=== PATIENT | female | born 1965 | race African-American/Black ===

== ENCOUNTER 2017-03-05 08:14 | Day surgery (SDC) | payer OTHER ==
[2017-03-04 12:13] VITALS: BMI 31.1
[2017-03-05] MEDS ORDERED: MIDAZOLAM HCL 2 MG/2 ML SINGLE DOSE VIAL ONE ×3 (09:59→10:38)
[2017-03-05] MEDS ORDERED: KETOROLAC TROMETHAMINE 30 MG/1 ML VIAL ONE ×2 (10:08→10:43)
[2017-03-05] MEDS ORDERED: oxyCODONE HCL 5 MG TABLET PO ONE (10:13)
[2017-03-05] MEDS ORDERED: PROPOFOL 20 ML ONE (10:45)
[2017-03-05 10:48] VITALS: TEMP 97.5
[2017-03-05 11:36] VITALS: BP 134/85; PULSE 78
--- NOTE | 2017-03-05 13:55 | OP ---
DATE OF OPERATION: 03/05/2017 PREOPERATIVE DIAGNOSIS: Low-back pain, lumbar radiculopathy bilaterally. POSTOPERATIVE DIAGNOSIS: Low-back pain, lumbar radiculopathy bilaterally. PROCEDURE: Lumbar epidural steroid injection, interlaminar, at L4-L5 on the right side. ANESTHESIA: Local and MAC. ANESTHESIOLOGIST: FREDIS. PROCEDURE: I discussed with her in detail about risks, benefits and alternatives of treatment, not only limited to infection, fever, headache, numbness, tingling, weakness, and injury to nerve, blood vessels, and muscles. Patient understood, agreed, and signed the written consent. The patient was placed in the prone position. Head, abdomen, legs supported with pillows. Patient was given IV sedation. Lumbosacral area was prepped, draped, with Betadine x3 and alcohol x3. Under fluoroscopy, L4-L5 on the right side was identified. Then 3 mL of 1% lidocaine was infiltrated in the skin and subcutaneous tissue at this level. A 20-gauge 3-1/2-inch Tuohy needle was used to expose the epidural space with loss of resistance technique under intermittent fluoroscopy. After negative aspiration of blood and CSF, 3 mL of Omnipaque 180 were injected to see the flow of dye into epidural space, both cranially and caudally. There was no Vascular uptake or CSF spread. Then 2.5 mL of Celestone mixed with 2.5 mL of Marcaine 0.25% preservative-free, total of 5 mL was injected at each level after negative aspiration. While needle was withdrawn, 1 mL of 1% lidocaine was infiltrated. Patient tolerated well. There was no immediate complication. Betadine was wiped off. Sterile bandage was placed. Patient was transferred to recovery room. Patient was told to apply ice. If any problem, call me or report to ER. Follow up was given. ORTIZ ZARCO M.D. [id number] MTDD
== END 2017-03-05 11:15 | disposition home or self-care (01) ==
LOC: FASU 08:14
PROVIDERS: ATTEND Physical Medicine & Rehabilitation
PROC: 3E0R3CZ (ICD-10-PCS; 2017-03-05)
PROC: B01B1ZZ Fluoroscopy of Spinal Cord using Low Osmolar Contrast (ICD-10-PCS; 2017-03-05)
PROC: 3E0R33Z Introduction of Anti-inflammatory into Spinal Canal, Percutaneous Approach (ICD-10-PCS; principal; 2017-03-05 10:06)
DX: M54.16 Radiculopathy, lumbar region (principal); M54.5 Low back pain
CPT/HCPCS: 72100-TC

== ENCOUNTER 2017-04-09 08:52 | Day surgery (SDC) | payer OTHER ==
[2017-04-02 10:16] VITALS: BMI 31.4
[2017-04-09] MEDS ORDERED: MIDAZOLAM HCL 2 MG/2 ML SINGLE DOSE VIAL ONE (11:28)
[2017-04-09] MEDS ORDERED: PROPOFOL 20 ML ONE (11:42)
[2017-04-09 12:26] VITALS: TEMP 98
[2017-04-09 12:39] VITALS: BP 121/81; PULSE 66
--- NOTE | 2017-04-09 13:24 | OP ---
DATE OF OPERATION: 04/09/2017 PERFORMING PHYSICIAN: Ortiz Gr MD PREOPERATIVE DIAGNOSIS: Low back pain with lumbar radiculopathy. POSTOPERATIVE DIAGNOSIS: Low back pain with lumbar radiculopathy. PROCEDURE: Lumbar epidural steroid injection, right L4-L5, interlaminar. ANESTHESIA: Local and MAC. ANESTHESIOLOGIST: Boni Singh MD DESCRIPTION OF PROCEDURE: I discussed with her in detail about risks, benefits, and alternative treatments, not only limited to infection, fever, headache, numbness, tingling, weakness, injury to blood vessels or muscles or nerves. Patient understood, agreed, and signed the written consent. The patient was placed in the prone position with the head, legs, and abdomen supported with pillows. The lumbosacral area was prepped, draped with Betadine x3 and alcohol x3. Under fluoroscopy, the L4-L5 area on the right side was identified. At this level, 3 mL of 1% lidocaine was infiltrated. A 20-gauge 3.5-inch Tuohy needle was used to approach the epidural space with loss of resistance technique, interlaminar approach, with intermittent fluoroscopy, both AP and oblique views. After negative aspiration, 2 mL of Omnipaque 180 was injected to see the flow of dye spread both cranially and caudally. There was spinal uptake, and needle was readjusted. Again, 1 mL of Omnipaque dye was injected after negative aspiration. There was no vascular or CSF uptake. Then, 2.5 mL of betamethasone mixed with 1.5 mL of 0.25% preservative-free Marcaine, total around 4 ML, was injected into the epidural space after negative aspiration. While needle was withdrawn, 1 mL of 1% lidocaine was infiltrated. Bleeding was checked. Betadine was wiped off. A sterile bandage was placed. Patient tolerated the procedure well. There was no immediate complication. Patient was transferred to recovery room, observed and discharged as per criteria. Patient was told to apply ice, and if any problem, call me or report to ER. Patient was given a followup appointment. ORTIZ GR M.D. GUZMAN/[id number]
== END 2017-04-09 12:40 | disposition home or self-care (01) ==
LOC: FASU 08:52
PROVIDERS: ATTEND Physical Medicine & Rehabilitation
PROC: 3E0R3CZ (ICD-10-PCS; 2017-04-09)
PROC: B01B1ZZ Fluoroscopy of Spinal Cord using Low Osmolar Contrast (ICD-10-PCS; 2017-04-09)
PROC: 3E0R33Z Introduction of Anti-inflammatory into Spinal Canal, Percutaneous Approach (ICD-10-PCS; principal; 2017-04-09 11:45)
DX: M54.16 Radiculopathy, lumbar region (principal); M54.5 Low back pain
CPT/HCPCS: 72100-TC

== ENCOUNTER 2017-05-14 11:47 | Day surgery (SDC) | payer OTHER ==
[2017-05-13 16:44] VITALS: BMI 30.6
[2017-05-14 12:21] VITALS: TEMP 98.1
[2017-05-14] MEDS ORDERED: LIDOCAINE HCL 1%, 10 MG/ML (20ML VIAL) IJ ONE (14:16)
[2017-05-14] MEDS ORDERED: BETAMET ACET/BETAMET NA PH 30 MG/5 ML VIAL IM ONE (14:16)
[2017-05-14] MEDS ORDERED: IOHEXOL 180 MG/1 ML ML IJ ONE (14:17)
[2017-05-14] MEDS ORDERED: PROPOFOL 20 ML ONE (14:26)
[2017-05-14] MEDS ORDERED: LIDOCAINE HCL 1%, 10 MG/ML (20ML VIAL) ONE (14:46)
[2017-05-14] MEDS ORDERED: BUPIVACAINE HCL/PF 0.25% (2.5MG/ML) 10 ML VIAL ONE (14:46)
[2017-05-14 15:52] VITALS: BP 137/86; PULSE 87
--- NOTE | 2017-05-28 13:23 | OP ---
DATE OF OPERATION: 05/14/2017 PREOPERATIVE DIAGNOSIS: Low back pain with lumbar radiculopathy on right side. POSTOPERATIVE DIAGNOSIS: Low back pain with lumbar radiculopathy on right side. PROCEDURE: Lumbar epidural steroid injection, right L4-L5 level, interlaminar. ANESTHESIA: Local and MAC. CANCER GENETIC COUNSELOR: Arely Spears CRNA I discussed with her in detail risks, benefits, and alternative treatment not only limited to infection, fever, headache, numbness, tingling, weakness, injury to nerves, blood vessels, and muscles. Patient understood, agreed, and signed the written consent. Patient was placed in the prone position with head, abdomen, legs supported with pillows. Lumbosacral area was prepped and draped with Betadine x3 and alcohol x3. Right L4-L5 level was identified under fluoroscopy. At this level, 3 mL of 1% lidocaine was infiltrated. A 20-gauge, 3-1/2-inch Tuohy needle was used to approach the epidural space with loss of resistance technique. After negative aspiration, approach with loss of resistance technique under intermittent fluoroscopy both AP and oblique view through an interlaminar approach. After negative aspiration, 2 mL of Omnipaque 180 was injected to see the flow of dye into the epidural space both cranially and caudally. There was no venous uptake or CSF spread. A solution containing 2.5 mL of Celestone mixed with 2.5 mL of Marcaine preservative free, total volume mL, injected at this level after negative aspiration. While needle was withdrawn, 1 mL of 1% lidocaine was infiltrated. Patient tolerated the procedure well. There was no immediate complication. Bleeding was checked. Betadine was wiped off. Sterile bandage was placed. Patient was transferred to the recovery room. Patient was discharged as per AC criteria. Patient was told to apply ice. If any problem, call me or report to ER. Patient was given the followup appointment. ORTIZ ZARCO M.D. GUZMAN/[id number]
== END 2017-05-14 15:51 | disposition home or self-care (01) ==
LOC: JASU-SURG 11:47
PROVIDERS: ATTEND Physical Medicine & Rehabilitation
PROC: 3E0R3CZ (ICD-10-PCS; 2017-05-14)
PROC: B01BYZZ Fluoroscopy of Spinal Cord using Other Contrast (ICD-10-PCS; 2017-05-14)
PROC: 3E0R33Z Introduction of Anti-inflammatory into Spinal Canal, Percutaneous Approach (ICD-10-PCS; principal; 2017-05-14 13:00)
DX: M54.16 Radiculopathy, lumbar region (principal); M54.5 Low back pain
CPT/HCPCS: 76000-TC

== ENCOUNTER 2017-08-20 10:00 | Day surgery (SDC) | payer OTHER ==
[2017-08-19 09:57] VITALS: BMI 31.6
[2017-08-20 10:37] VITALS: TEMP 98.4
[2017-08-20] MEDS ORDERED: MIDAZOLAM HCL 2 MG/2 ML SINGLE DOSE VIAL ONE ×2 (13:03→13:10)
[2017-08-20] MEDS ORDERED: LIDOCAINE HCL 1%, 10 MG/ML (20ML VIAL) ONE (13:07)
[2017-08-20] MEDS ORDERED: KETAMINE HCL 200 MG/20 ML VIAL ONE (13:11)
[2017-08-20] MEDS ORDERED: BETAMET ACET/BETAMET NA PH 30 MG/5 ML VIAL IJ ONE (13:26)
[2017-08-20] MEDS ORDERED: LIDOCAINE HCL 1%, 10 MG/ML (20ML VIAL) INF ONE (13:27)
[2017-08-20] MEDS ORDERED: IOHEXOL 180 MG/1 ML ML IJ ONE (13:27)
[2017-08-20] MEDS ORDERED: BUPIVACAINE HCL/PF 0.25% (2.5MG/ML) 10 ML VIAL IJ ONE (13:28)
[2017-08-20] MEDS ORDERED: oxyCODONE HCL 5 MG TABLET ONE (13:50)
[2017-08-20] MEDS ORDERED: oxyCODONE HCL 5 MG TABLET PO ONE (15:15)
[2017-08-20 15:46] VITALS: BP 133/80; PULSE 72
--- NOTE | 2017-09-13 13:02 | PROC ---
Procedure Note Procedure: Preoperative Diagnosis:Low back pain and lumbar radiculopathy on Left Postoperative Diagnosis:Same Procedure Performed: Lumbar Epidural Steroid Injection (LESI) on Left L4-5 with dye under Fluoroscopy Anesthesia: Local / MAC Anesthesiologist: Procedure: I discussed with the patient in detail about the risks, benefits, and alternatives to treatment not only limited to infection, headache, numbness , weakness, and injury to nerves, blood vessels and muscles. The patient understood, agreed and signed the written consent. The patient was placed in the prone position with the head, abdomen and legs supported with the pillows. The lumbosacral area was prepped and draped with Betadine times three in a sterile fashion. Lumbar vertebrae were identified under the C-arm. At L4-5 level on the Left side, 3 ml of 1 % Lidocaine was infiltrated into the skin and subcutaneous tissue. A 3 inch, #20 gauge Tuohy needle was advanced to the epidural space with loss of resistance technique under fluoroscopic guidance. Aspiration was negative for cerebrospinal fluid and blood. 2ml of Omnipaque ( radio-opaque dye) was injected to confirm the tip of the needle into epidural space and spread of dye. There was no CSF or vascular spread. The spread of dye was noted cranially and caudally on epidurogram. Aspiration was done again which was negative. A solution of 2.5 ml of Celestone and 2.5 ml of 0.25% Marcaine and and a total of 5 ml was injected slowly. While Tuohy needle was withdrawn 2.0 ml of 1 % Lidocaine was infiltrated. Bleeding was checked. Betadine was wiped off. A sterile bandage was placed. The patient tolerated the procedure well. There were no immediate complications. The patient was transferred to the recovery room. The patient was observed for some time and discharged as per ASU criteria. The patient was told to apply ice at the injection site. Follow up appointment was given and also call my office at . If there is any problem, call my office or report to Emergency Room. Vish Gr M.D.
== END 2017-08-20 15:10 | disposition home or self-care (01) ==
LOC: JASU-SURG 10:00
PROVIDERS: ATTEND Physical Medicine & Rehabilitation
PROC: 3E0S33Z Introduction of Anti-inflammatory into Epidural Space, Percutaneous Approach (ICD-10-PCS; 2017-08-20)
PROC: B01BYZZ Fluoroscopy of Spinal Cord using Other Contrast (ICD-10-PCS; 2017-08-20)
PROC: 3E0S3BZ Introduction of Anesthetic Agent into Epidural Space, Percutaneous Approach (ICD-10-PCS; principal; 2017-08-20 12:00)
DX: M54.16 Radiculopathy, lumbar region (principal); M54.9 Dorsalgia, unspecified
CPT/HCPCS: 76000-TC

== ENCOUNTER 2017-12-01 03:02 | Emergency (ER) | payer OTHER ==
--- NOTE | 2017-12-01 03:56 | PDOC ---
History of Present Illness - General Stated Complaint: DEPRESSION Time Seen by Provider: 12/01/17 03:30 - History of Present Illness Initial Comments: 12/01/17 03:50 Pt is a 52F with PMH Manic Depression, ADHD, herniated disc, HTN who presents to the ED stating that she is "not feeling well". Pt states that she was arguing with her son and was feeling like she shouldn't be with her family today and needs placement. She states she was taking Pristiq but stopped the medication on her own 6 weeks ago. When asked if she felt like she wants to hurt herself, pt repeated "I just don't feel well" before finally stating that she did not have any intention of hurting herself. Pt denies smoking, drinking, drug use. Past History - Past Medical History Allergies/Adverse Reactions: Allergies Allergy/AdvReac Type Severity Reaction Status Date / Time naproxen Allergy Rash Verified 12/01/17 04:25 Home Medications: Ambulatory Orders Metoprolol Succinate [Toprol Xl] 50 mg PO DAILY 05/19/16 Atomoxetine HCl [Strattera] 80 mg PO DAILY 08/20/16 Desvenlafaxine Succinate [Pristiq] 50 mg PO DAILY 05/14/17 Hydrocodone/Acetaminophen [Lorcet 5-325 mg Tablet] 1 tab PO PRN PRN 08/19/17 Anemia: No Asthma: No Cancer: No Cardiac Disorders: No (HAD RIGHT SIDED PAIN SEVERAL MONTHS AGO- SEEN BY CARIOLOGIST- NEGATIVE) CVA: No COPD: No CHF: No Dementia: No Diabetes: No GI Disorders: No Disorders: No HTN: Yes (DX 2011) Hypercholesterolemia: No Liver Disease: No Psychiatric Problems: Yes (depression,adhd) Seizures: No Thyroid Disease: No - Surgical History Abdominal Surgery: No Appendectomy: No Cardiac Surgery: No Cholecystectomy: No Lung Surgery: No Neurologic Surgery: No Orthopedic Surgery: Yes ([place] X 1 2015) - Immunization History Immunization Up to Date: No - Suicide/Smoking/Psychosocial Hx Smoking History: Former smoker Have you smoked in the past 12 months: No If you are a former smoker, when did you quit?: 1970 Hx Alcohol Use: No Drug/Substance Use Hx: No Substance Use Type: Prescribed Hx Substance Use Treatment: No Review of Systems - Review of Systems Able to Perform ROS?: Yes Is the patient limited Malian proficient: No Constitutional: Yes: Symptoms Reported. No: Chills, Diaphoresis, Fever HEENTM: Yes: Symptoms Reported. No: Eye Pain, Blurred Vision Respiratory: Yes: Symptoms reported. No: Cough Cardiac (ROS): Yes: Symptoms Reported. No: Chest Pain ABD/GI: Yes: Symptoms Reported. No: Abdominal Distended, Constipated, Diarrhea : Yes: Symptoms Reported. No: Burning, Dysuria, Discharge Musculoskeletal: Yes: Symptoms Reported. No: Back Pain Psychiatric: Yes: Depression, Emotional Problems *Physical Exam - Physical Exam General Appearance: Yes: Nourished, Appropriately Dressed, Other (pt appears subdued, speaks quietly) HEENT: positive: EOMI, LUIS, Normal ENT Inspection, Normal Voice Neck: positive: Supple. negative: Tender Respiratory/Chest: positive: Lungs Clear, Normal Breath Sounds. negative: Chest Tender Cardiovascular: positive: Regular Rhythm, Regular Rate, S1, S2 Vascular Pulses: Dorsalis-Pedis (R): 2+, Doralis-Pedis (L): 2+ Gastrointestinal/Abdominal: positive: Normal Bowel Sounds, Flat, Soft. negative : Tender Neurologic: positive: Fully Oriented, Normal Mood/Affect, Depressed Affect ED Treatment Course - LABORATORY CBC & Chemistry Diagram: 12/01/17 06:00 12/01/17 06:00 Medical Decision Making - Medical Decision Making 12/01/17 04:01 Pt is a 52 y/o F w/ PMH manic depression (on pristiq until 6 weeks ago), ADHD who presents to ED with chief complaint of not feeling well. Pt states she had argument with son and feels she should not be with family. Likely depression -CBC, CMP -Pt clearly denied intention of self-harm Pt sees Dr. Quintero as outpt. 12/01/17 06:41 CBC unremarkable. 12/01/17 06:52 Pt will need social work, which should become available after 8am. *DC/Admit/Observation/Transfer - Referrals Referrals: STAFF,NOT ON [Primary Care Provider] - - Patient Instructions - Post Discharge Activity
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
[2017-12-01 04:25] VITALS: TEMP 98.2; BMI 29.9
[2017-12-01] MEDS ORDERED: ACETAMINOPHEN 325 MG TABLET (FP) PO ONE (04:46)
[2017-12-01] MEDS ORDERED: ACETAMINOPHEN 325 MG TABLET (FP) ONE (04:53)
[2017-12-01 06:15] LABS: BASO % 0.7 % (0-2.0); EOS % 2.9 % (0-4.5); HEMATOCRIT 35.9 % (32.4-45.2); LYMPH % 29.8 % (8-40); MCH 32.2 pg (25.7-33.7); MCHC 33.5 g/dl (32.0-36.0); MEAN CELL VOLUME 96.1 fl (80-96); MEAN PLT VOLUME 8.2 fl (7.5-11.1); MONO % 7.6 % (3.8-10.2); PLATELET COUNT 249 K/MM3 (134-434); RBC 3.74 M/mm3 (3.60-5.2); WHITE BLOOD COUNT 6.4 K/mm3 (4.0-10.0)
[2017-12-01 06:43] LABS: ALBUMIN 3.4 g/dl (3.4-5.0); ANION GAP 7 (8-16); BILIRUBIN,TOTAL 0.2 mg/dL (0.2-1.0); BLOOD UREA NITROGEN 20 mg/dL (7-18); CHLORIDE 108 mmol/L (98-107); CO2 28 mmol/L (21-32); CREATININE 0.8 mg/dL (0.55-1.02); GLUCOSE,RANDOM 83 mg/dL (74-106); POTASSIUM 3.9 mmol/L (3.5-5.1); SGOT/AST 19 U/L (15-37); SGPT/ALT 26 U/L (12-78); SODIUM 143 mmol/L (136-145); TOT PROT 6.4 g/dl (6.4-8.2)
[2017-12-01 06:44] LABS: ALK PHOS 81 U/L (45-117)
--- NOTE | 2017-12-01 07:24 | PDOC ---
*Physical Exam - Vital Signs Last Vital Signs Temp Pulse Resp BP Pulse Ox 98.2 F 71 16 131/90 100 12/01/17 04:20 12/01/17 04:20 12/01/17 04:20 12/01/17 04:20 12/01/17 04:20 ED Treatment Course - LABORATORY CBC & Chemistry Diagram: 12/01/17 06:00 12/01/17 06:00 - ADDITIONAL ORDERS Additional order review: Laboratory Results 12/01/17 06:00 Sodium 143 Potassium 3.9 Chloride 108 H Carbon Dioxide 28 Anion Gap 7 L BUN 20 H Creatinine 0.8 Creat Clearance w eGFR > 60 Random Glucose 83 Calcium 10.0 Total Bilirubin 0.2 AST 19 ALT 26 Alkaline Phosphatase 81 Total Protein 6.4 Albumin 3.4 12/01/17 06:00 RBC 3.74 MCV 96.1 H MCHC 33.5 RDW 14.0 MPV 8.2 Neutrophils % 59.0 Lymphocytes % 29.8 Monocytes % 7.6 Eosinophils % 2.9 Basophils % 0.7 - Medications Given in the ED: ED Medications Discontinued Medications Generic Name Dose Route Start Last Admin Trade Name Lion PRN Reason Stop Dose Admin Acetaminophen 325 mg 12/01/17 04:46 12/01/17 04:55 Tylenol - PO 12/01/17 04:47 325 mg ONCE ONE Administration Medical Decision Making - Medical Decision Making 12/01/17 07:24 Care taken over from Dr. Cueto. 12/01/17 08:49 Social work consulted and will see patient. 12/01/17 11:22 Patient work spoke with patient and provided information regarding placement and resources for care. Patient verbalized she will return home and follow-up tomorrow. Patient would like to go home and is feeling better. Will discharge. *DC/Admit/Observation/Transfer Diagnosis at time of Disposition: Malaise - Discharge Dispostion Disposition: HOME - Referrals Referrals: STAFF,NOT ON [Primary Care Provider] - - Patient Instructions Printed Discharge Instructions: DI for Depression -- Adult Additional Instructions: Please return if any increase in symptoms, pain, fever, or other concerning developments. Follow-up with primary care provider in 1-2 days for further evaluation. - Post Discharge Activity
[2017-12-01 11:38] VITALS: BP 134/98; PULSE 89
== END 2017-12-01 11:38 | disposition home or self-care (01) ==
LOC: JER 03:02
DX: F32.9 Major depressive disorder, single episode, unspecified (principal); F90.9 Attention-deficit hyperactivity disorder, unspecified type; I10 Essential (primary) hypertension
CPT/HCPCS: 36415; 80053; 85025; 99282-25

== ENCOUNTER 2017-12-17 08:12 | Day surgery (SDC) | payer OTHER ==
[2017-12-16 11:07] VITALS: BMI 32.4
[2017-12-17 08:29] VITALS: TEMP 98.2
[2017-12-17] MEDS ORDERED: PROPOFOL 20 ML ONE ×2 (10:17→10:49)
[2017-12-17] MEDS ORDERED: MIDAZOLAM HCL 2 MG/2 ML SINGLE DOSE VIAL ONE (10:17)
[2017-12-17] MEDS ORDERED: BUPIVACAINE HCL/PF 0.25% (2.5MG/ML) 10 ML VIAL ONE (10:25)
[2017-12-17] MEDS ORDERED: LIDOCAINE HCL 1%, 10 MG/ML (20ML VIAL) ONE (10:25)
[2017-12-17] MEDS ORDERED: BETAMET ACET/BETAMET NA PH 30 MG/5 ML VIAL ONE (10:25)
[2017-12-17] MEDS ORDERED: LIDOCAINE HCL 1%, 10 MG/ML (20ML VIAL) INF ONE (10:45)
[2017-12-17] MEDS ORDERED: IOHEXOL 180 MG/1 ML ML IJ ONE ×2 (10:46)
[2017-12-17] MEDS ORDERED: BUPIVACAINE HCL/PF 0.5% (5MG/ML) 10 ML VIAL IJ ONE (10:46)
[2017-12-17] MEDS ORDERED: BUPIVACAINE HCL/PF 0.5% (5MG/ML) 10 ML VIAL ONE (11:03)
[2017-12-17 12:16] VITALS: BP 128/82; PULSE 77
== END 2017-12-17 12:41 | disposition home or self-care (01) ==
LOC: JASU-SURG 08:12
PROVIDERS: ATTEND Physical Medicine & Rehabilitation
PROC: 3E0T3BZ Introduction of Anesthetic Agent into Peripheral Nerves and Plexi, Percutaneous Approach (ICD-10-PCS; principal; 2017-12-17 08:00)
DX: M46.96 Unspecified inflammatory spondylopathy, lumbar region (principal); M54.89 Other dorsalgia
CPT/HCPCS: 76000-TC

== ENCOUNTER 2018-01-31 17:33 | Emergency (ER) | payer OTHER ==
--- NOTE | 2018-01-31 17:59 | PDOC ---
Rapid Medical Evaluation Time Seen by Provider: 01/31/18 17:57 Medical Evaluation: Allergies Allergy/AdvReac Type Severity Reaction Status Date / Time naproxen Allergy Rash Verified 12/01/17 04:25 01/31/18 17:57 I have performed a brief in-person evaluation of this patient. The patient presents with a chief complaint of: post menopausal bleeding w/ nausea today. Pt menopausal x years, HTN, manic depression but off psych meds for unclear reason Pertinent physical exam findings:Stable w/ unremarkable exam I have ordered the following:cbc/chem The patient will proceed to the ED for further evaluation.
[2018-01-31 18:02] VITALS: BP 120/74; PULSE 70; TEMP 98.1; BMI 31.2
[2018-01-31 18:19] LABS: BASO % 0.6 % (0-2.0); HEMATOCRIT 37.6 % (32.4-45.2); HEMOGLOBIN 12.5 GM/dL (10.7-15.3); LYMPH % 30.5 % (8-40); MCH 32.2 pg (25.7-33.7); MCHC 33.3 g/dl (32.0-36.0); MEAN CELL VOLUME 96.6 fl (80-96); MEAN PLT VOLUME 9.2 fl (7.5-11.1); MONO % 9.6 % (3.8-10.2); NEUT % 57.3 % (42.8-82.8); PLATELET COUNT 321 K/MM3 (134-434); RBC 3.89 M/mm3 (3.60-5.2); RDW 13.9 % (11.6-15.6); WHITE BLOOD COUNT 6.4 K/mm3 (4.0-10.0)
[2018-01-31 18:44] LABS: ALBUMIN 3.6 g/dl (3.4-5.0); ALK PHOS 85 U/L (45-117); ANION GAP 8 (8-16); BILIRUBIN,TOTAL 0.3 mg/dL (0.2-1.0); BLOOD UREA NITROGEN 14 mg/dL (7-18); CALCIUM 10.4 mg/dL (8.5-10.1); CHLORIDE 109 mmol/L (98-107); CO2 28 mmol/L (21-32); GLUCOSE,RANDOM 86 mg/dL (74-106); SGOT/AST 16 U/L (15-37); SGPT/ALT 21 U/L (12-78); SODIUM 145 mmol/L (136-145); TOT PROT 7.2 g/dl (6.4-8.2)
--- NOTE | 2018-01-31 18:47 | PDOC ---
History of Present Illness - General Chief Complaint: Weakness Stated Complaint: WEAKNESS Time Seen by Provider: 01/31/18 17:57 History Source: Patient Exam Limitations: No Limitations - History of Present Illness Initial Comments: CHIEF COMPLAINT: 52 y/o afebrile female with PMH HTN, ADHD and depression c/o nausea and bleeding (unsure if from urine or vaginal) today. HISTORY OF PRESENT ILLNESS: The patient states she has been urinating more frequently today and when she wipes she has some blood on the toilet paper. She is unsure if the blood is vaginal or from her urinary tract. She denies f/c , v/d, CP, SOB, back pain, dysuria. Vital signs on arrival are within normal limits. REVIEW OF SYSTEMS: GENERAL/CONSTITUTIONAL: No fever/chills. No weakness. No weight change. HEAD, EYES, EARS, NOSE AND THROAT: No change in vision. No ear pain or discharge. No sore throat. CARDIOVASCULAR: No chest pain or shortness of breath. RESPIRATORY: No cough, wheezing, or hemoptysis. GASTROINTESTINAL: +nausea. No vomiting, diarrhea, constipation. GENITOURINARY: ?hematuria vs vaginal spotting. +frequency. No dysuria. MUSCULOSKELETAL: No joint or muscle swelling or pain. No neck or back pain. SKIN: No rash or easy bruising. NEUROLOGIC: No headache, vertigo, loss of consciousness, or loss of sensation. PHYSICAL EXAM: GENERAL: The patient is awake, alert, and fully oriented, in no acute distress. She is well appearing and ambulatory. ABDOMEN: Soft, non-distended, TTP of suprapubic region. No flank pain. BACK: No CVA TTP b/l. EXTREMITIES: Normal range of motion, no edema. NEUROLOGICAL: Normal speech, normal gait. CN II-XII grossly intact. PSYCH: Somewhat flat affect. SKIN: Warm, dry, normal turgor, no rashes or lesions noted. Past History - Past Medical History Allergies/Adverse Reactions: Allergies Allergy/AdvReac Type Severity Reaction Status Date / Time naproxen Allergy Rash Verified 01/31/18 17:58 Home Medications: Ambulatory Orders Metoprolol Succinate [Toprol Xl] 50 mg PO DAILY 05/19/16 Atomoxetine HCl [Strattera] 80 mg PO DAILY 08/20/16 Hydrocodone Bitartrate [Zohydro ER] 5 mg PO PRN 01/31/18 Anemia: No Asthma: No Cancer: No Cardiac Disorders: No (HAD RIGHT SIDED PAIN SEVERAL MONTHS AGO- SEEN BY CARIOLOGIST- NEGATIVE) CVA: No COPD: No CHF: No Dementia: No Diabetes: No GI Disorders: No Disorders: No HTN: Yes (DX 2011) Hypercholesterolemia: No Liver Disease: No Psychiatric Problems: Yes (depression,adhd) Seizures: No Thyroid Disease: No - Surgical History Abdominal Surgery: No Appendectomy: No Cardiac Surgery: No Cholecystectomy: No Lung Surgery: No Neurologic Surgery: No Orthopedic Surgery: Yes ([place] X 1 2015) - Immunization History Immunization Up to Date: No - Suicide/Smoking/Psychosocial Hx Smoking History: Former smoker Have you smoked in the past 12 months: No If you are a former smoker, when did you quit?: 1969 Information on smoking cessation initiated: No Hx Alcohol Use: No Drug/Substance Use Hx: No Substance Use Type: Prescribed Hx Substance Use Treatment: No *Physical Exam - Vital Signs Last Vital Signs Temp Pulse Resp BP Pulse Ox 98.1 F 70 16 120/74 99 01/31/18 17:58 01/31/18 17:58 01/31/18 17:58 01/31/18 17:58 01/31/18 17:58 ED Treatment Course - LABORATORY CBC & Chemistry Diagram: 01/31/18 18:10 01/31/18 18:10 - ADDITIONAL ORDERS Additional order review: 01/31/18 18:10 RBC 3.89 MCV 96.6 H MCHC 33.3 RDW 13.9 MPV 9.2 D Neutrophils % 57.3 Lymphocytes % 30.5 Monocytes % 9.6 Eosinophils % 2.0 Basophils % 0.6 Medical Decision Making - Medical Decision Making A/P: 52 y/o female c/o nausea, increased urinary frequency and vaginal vs urinary bleeding today. Physical exam suggests UTI. Plan is as follows: 1. Labs 2. UA/culture Labs unremarkable Waiting for patient to give urine. She was given a pitcher of water. I am signing this patient out to my colleague: CLARISSE Linda In brief, this patient is being seen in the ED for a chief complaint of: nausea , vaginal vs urinary bleeding I have completed the initial assessment interview note and have ordered: labs, UA/culture I have reviewed the following results: labs Pending results are: UA Please call the PCP: Bruce Davis Plan for disposition is as follows: If urine is negative for blood, send for transvaginal ultrasound? *DC/Admit/Observation/Transfer Diagnosis at time of Disposition: Endometrial thickening on ultrasound, Vaginal bleeding, Prolapsed uterus - Discharge Dispostion Disposition: HOME Condition at time of disposition: Stable - Referrals Referrals: Bruce Davis MD [Primary Care Provider] - - Patient Instructions Printed Discharge Instructions: DI for Vaginal Bleeding Additional Instructions: You Your ultrasound today showed a mildly thickened endometrium. It is important that you follow-up with her FUR BLENDER for further testing as this may represent cancer. Please drink plenty of fluids. He may take Motrin as needed for pain. Return to the emergency department if you have worsening pain, vaginal bleeding , shortness of breath, or have any changes in your symptoms. - Post Discharge Activity Forms/Work/School Notes: Back to Work
--- NOTE | 2018-01-31 19:19 | PDOC ---
*Physical Exam - Vital Signs Last Vital Signs Temp Pulse Resp BP Pulse Ox 98.1 F 70 16 120/74 99 01/31/18 17:58 01/31/18 17:58 01/31/18 17:58 01/31/18 17:58 01/31/18 17:58 - Physical Exam General Appearance: Yes: Nourished, Appropriately Dressed. No: Apparent Distress Female Pelvic Exam: positive: cervical os closed, other (Uterine prolapse with os at the base of the vaginal opening.) ED Treatment Course - LABORATORY CBC & Chemistry Diagram: 01/31/18 18:10 01/31/18 18:10 - ADDITIONAL ORDERS Additional order review: Laboratory Results 01/31/18 18:10 Sodium 145 Potassium 4.0 Chloride 109 H Carbon Dioxide 28 Anion Gap 8 BUN 14 Creatinine 1.0 Creat Clearance w eGFR 58.00 Random Glucose 86 Calcium 10.4 H Total Bilirubin 0.3 D AST 16 ALT 21 Alkaline Phosphatase 85 Total Protein 7.2 Albumin 3.6 01/31/18 18:10 RBC 3.89 MCV 96.6 H MCHC 33.3 RDW 13.9 MPV 9.2 D Neutrophils % 57.3 Lymphocytes % 30.5 Monocytes % 9.6 Eosinophils % 2.0 Basophils % 0.6 Medical Decision Making - Medical Decision Making 01/31/18 19:18 Sign out recieved from CLARISSE Howard. Pt. pending UA d/t possible hematuria vs vaginal bleeding. Pt. still to give urine. 01/31/18 23:14 Urine is negative for blood, no uti. Labs within normal limits. Transvaginal US:Leiomyomatous uterus as above. Borderline mildly thickened endometrium for postmenopausal state measuring 6 mm please correlate clinically with endometrial sampling if warranted. Right left ovaries are not visualized and cannot be evaluated. Bleeding most likely vaginal source. No bleeding at this time. Will recommend pt f/u with her internal affairs commander as an out patient. Patient given a copy of her results. Pt. also advised she has a prolapsed uterus and that f/u with her internal affairs commander is very important. Return precautions given. Pt. understands all d/c instructions and all questions were answered. *DC/Admit/Observation/Transfer Diagnosis at time of Disposition: Endometrial thickening on ultrasound, Vaginal bleeding, Prolapsed uterus - Discharge Dispostion Disposition: HOME Condition at time of disposition: Stable Admit: No - Referrals Referrals: Bruce Davis MD [Primary Care Provider] - - Patient Instructions Printed Discharge Instructions: DI for Vaginal Bleeding Additional Instructions: You Your ultrasound today showed a mildly thickened endometrium. It is important that you follow-up with her TECHNOLOGY TRAINING ASSOCIATE for further testing as this may represent cancer. Please drink plenty of fluids. He may take Motrin as needed for pain. Return to the emergency department if you have worsening pain, vaginal bleeding , shortness of breath, or have any changes in your symptoms. - Post Discharge Activity Forms/Work/School Notes: Back to Work
[2018-01-31 20:21] LABS: URINE APPEARANCE CLEAR; URINE BILIRUBIN NEGATIVE (NEGATIVE); URINE BLOOD NEGATIVE (NEGATIVE); URINE COLOR LTYELLOW; URINE GLUCOSE (UA) NEGATIVE (NEGATIVE); URINE KETONE NEGATIVE (NEGATIVE); URINE LEUK ESTERASE NEGATIVE (NEGATIVE); URINE NITRITE NEGATIVE (NEGATIVE); URINE PROTEIN NEGATIVE (NEGATIVE); URINE UROBILINOGEN NEGATIVE mg/dL (0.2-1.0)
== END 2018-01-31 23:52 | disposition home or self-care (01) ==
LOC: JER 17:33
DX: R93.8 Abnormal findings on diagnostic imaging of other specified body structures (principal); N81.4 Uterovaginal prolapse, unspecified; D25.9 Leiomyoma of uterus, unspecified; I10 Essential (primary) hypertension; F90.9 Attention-deficit hyperactivity disorder, unspecified type; F32.9 Major depressive disorder, single episode, unspecified
CPT/HCPCS: 36415; 76830-TC; 80053; 81003; 85025; 87086; 99282-25

== ENCOUNTER 2018-03-25 07:16 | Day surgery (SDC) | payer OTHER ==
[2018-02-24 14:24] VITALS: BMI 32.4
[~2018-03-25 07:16] MED LIST: BETAMET ACET/BETAMET NA PH 30 MG/5 ML VIAL IJ ONE; BUPIVACAINE HCL/PF 0.25% (2.5MG/ML) 10 ML VIAL IJ ONE; IOHEXOL 180 MG/1 ML ML IJ ONE; LIDOCAINE HCL 1%, 10 MG/ML (20ML VIAL) INF ONE; LIDOCAINE HCL 1%, 10 MG/ML (50 mL VIAL) IJ ONE
[2018-03-25] MEDS ORDERED: LIDOCAINE HCL 1%, 10 MG/ML (20ML VIAL) ONE (09:06)
[2018-03-25] MEDS ORDERED: BETAMET ACET/BETAMET NA PH 30 MG/5 ML VIAL ONE (09:06)
[2018-03-25] MEDS ORDERED: BUPIVACAINE HCL/PF 0.25% (2.5MG/ML) 10 ML VIAL ONE (09:07)
[2018-03-25] MEDS ORDERED: LIDOCAINE HCL 1%, 10 MG/ML (20ML VIAL) INF ONE (09:27)
[2018-03-25] MEDS ORDERED: IOHEXOL 180 MG/1 ML ML IJ ONE (09:28)
[2018-03-25] MEDS ORDERED: BETAMET ACET/BETAMET NA PH 30 MG/5 ML VIAL IJ ONE (09:30)
[2018-03-25] MEDS ORDERED: BUPIVACAINE HCL/PF 0.25% (2.5MG/ML) 10 ML VIAL IJ ONE ×2 (09:30)
[2018-03-25 10:02] VITALS: TEMP 98.1
[2018-03-25 11:29] VITALS: BP 126/89; PULSE 80
--- NOTE | 2018-04-07 10:26 | PROC ---
Procedure Note Procedure: Date of service: 03/25/2018 Preoperative Diagnosis: Low back pain and lumbar radiculopathy on right Postoperative Diagnosis: Same Procedure Performed: Lumbar Epidural Steroid Injection (LESI) on Right L4-5 with dye under Fluoroscopy Anesthesia: Local / MAC Anesthesiologist: Procedure: I discussed with the patient in detail about the risks, benefits, and alternatives to treatment not only limited to infection, headache, numbness , weakness, and injury to nerves, blood vessels and muscles. The patient understood, agreed and signed the written consent. The patient was placed in the prone position with the head, abdomen and legs supported with the pillows. The lumbosacral area was prepped and draped with Betadine times three in a sterile fashion. Lumbar vertebrae were identified under the C-arm. At L4-5 level on the right side, 3 ml of 1 % Lidocaine was infiltrated into the skin and subcutaneous tissue. A 3 inch, #20 gauge Tuohy needle was advanced to the epidural space with loss of resistance technique under fluoroscopic guidance. Aspiration was negative for cerebrospinal fluid and blood. 2ml of Omnipaque ( radio-opaque dye) was injected to confirm the tip of the needle into epidural space and spread of dye. There was no CSF or vascular spread. The spread of dye was noted cranially and caudally on epidurogram. Aspiration was done again which was negative. A solution of 2.5 ml of Celestone, 2.5 ml of 0.25% Marcaine a total of 5 ml was injected slowly. While Tuohy needle was withdrawn 2.0 ml of 1 % Lidocaine was infiltrated. Bleeding was checked. Betadine was wiped off. A sterile bandage was placed. The patient tolerated the procedure well. There were no immediate complications. The patient was transferred to the recovery room. The patient was observed for some time and discharged as per ASU criteria. The patient was told to apply ice at the injection site. Follow up appointment was given and also call my office at [phone]. If there is any problem, call my office or report to Emergency Room. Vish Gr M.D.
== END 2018-03-25 11:35 | disposition home or self-care (01) ==
LOC: JASU-SURG 07:16
PROVIDERS: ATTEND Physical Medicine & Rehabilitation
PROC: 3E0R33Z Introduction of Anti-inflammatory into Spinal Canal, Percutaneous Approach (ICD-10-PCS; 2018-03-25)
PROC: B01BYZZ Fluoroscopy of Spinal Cord using Other Contrast (ICD-10-PCS; 2018-03-25)
PROC: 3E0R3BZ Introduction of Anesthetic Agent into Spinal Canal, Percutaneous Approach (ICD-10-PCS; principal; 2018-03-25 08:30)
DX: M54.16 Radiculopathy, lumbar region (principal); M54.5 Low back pain
CPT/HCPCS: 76000-TC-FY

== ENCOUNTER 2018-06-23 19:57 | Emergency (ER) | payer OTHER ==
[2018-06-23 20:30] VITALS: BP 123/84; PULSE 67; TEMP 98.4; BMI 33.3
[2018-06-23] MEDS ORDERED: ACETAMINOPHEN 325 MG TABLET (FP) PO ONE (20:40)
[2018-06-23] MEDS ORDERED: KETOROLAC TROMETHAMINE 60 MG/2 ML VIAL IM ONE (20:40)
--- NOTE | 2018-06-23 21:09 | PDOC ---
Attending Attestation - HPI HPI: 06/23/18 22:02 The patient is a 53 year old female with past medical history of herniated disc , chronic back pain and HTN presents to the emergency department with pain. The patient presents with a week long worsening R. hip pain that radiates down to her foot, with difficulty ambulating. Denies urinary problems. Denies saddle anesthesia. Denies trauma or injury. Denies prior incident of similar pain. Allergies: naproxen Surgical history: ENRICO X 1 2016 PCP: Bruce Davis MD - Physicial Exam PE: 06/24/18 00:33 GENERAL: Well developed, well nourished. Awake and alert. No acute distress. HEENT: Normocephalic, atraumatic. PERRLA, EOMI. No conjunctival pallor. Sclera are non- icteric. Moist mucous membranes. Oropharynx is clear. NECK: Supple. Full ROM. No JVD. Carotid pulses 2+ and symmetric, without bruits. No thyromegaly. No lymphadenopathy. CARDIOVASCULAR: Regular rate and rhythm. No murmurs, rubs, or gallops. Distal pulses are 2+ and symmetric. PULMONARY: No evidence of respiratory distress. Lungs clear to auscultation bilaterally. No wheezing, rales or rhonchi. ABDOMINAL: Soft. Non-tender. Non-distended. No rebound or guarding. No organomegaly. Normoactive bowel sounds. MUSCULOSKELETAL Normal range of motion at all joints. No bony deformities or tenderness. No CVA tenderness. EXTREMITIES: No cyanosis. No clubbing. No edema. No calf tenderness. SKIN: Warm and dry. Normal capillary refill. No rashes. No jaundice. NEUROLOGICAL: Alert, awake, appropriate. Cranial nerves 2-12 intact. No deficits to light touch and temperature in face, upper extremities and lower extremities. No motor deficits in the in face, upper extremities and lower extremities. Normoreflexic in the upper and lower extremities. Normal speech. Toes are down- going bilaterally. Gait is normal without ataxia. PSYCHIATRIC: Cooperative. Good eye contact. Appropriate mood and affect. - Medical Decision Making 06/23/18 22:02 Documentation prepared by Rebekah Herrmann, acting as manager of medical for Manuel Bruce MD. <Rebekah Herrmann - Last Filed: 06/24/18 00:33> - Resident Resident Name: Ferny Waddell - ED Attending Attestation I have performed the following: I have examined & evaluated the patient, The case was reviewed & discussed with the resident, I agree w/resident's findings & plan, Exceptions are as noted - Medical Decision Making 06/24/18 19:43 Pt treated and released <Manuel Bruce - Last Filed: 06/24/18 19:44>
[2018-06-23] MEDS ORDERED: DEXAMETHASONE 4 MG TABLET (FP) PO ONE (21:10)
--- NOTE | 2018-06-23 21:10 | PDOC ---
History of Present Illness - General Chief Complaint: Pain Stated Complaint: R HIP PAIN Time Seen by Provider: 06/23/18 20:29 History Source: Patient Exam Limitations: No Limitations - History of Present Illness Initial Comments: 06/23/18 20:44 Patient is a 53F with history of chronic back pain, herniated discs and HTN here today complaining of 1 week of hip pain. She states that her pain is a stabbing feeling from her posterior right lower back down the back of her leg to her foot. She denies trauma, fevers, chills, IVDA, saddle anesthesia, issues with urination. Denies chest pain, shortness of breath. Denies abdominal pain. Past History - Past Medical History Allergies/Adverse Reactions: Allergies Allergy/AdvReac Type Severity Reaction Status Date / Time naproxen Allergy Rash Verified 06/23/18 20:30 Home Medications: Ambulatory Orders Metoprolol Succinate [Toprol Xl] 50 mg PO DAILY 05/19/16 Atomoxetine HCl [Strattera] 80 mg PO DAILY 08/20/16 Gabapentin 800 mg PO PRN PRN 03/24/18 Hydrocodone/Acetaminophen [Hydrocodone-Acetamin 5-325 mg] 1 each PO PRN PRN Anemia: No Asthma: No Cancer: No Cardiac Disorders: No (HAD RIGHT SIDED PAIN SEVERAL MONTHS AGO- SEEN BY CARIOLOGIST- NEGATIVE) CVA: No COPD: No CHF: No Dementia: No Diabetes: No GI Disorders: No Disorders: No HTN: Yes (DX 2011) Hypercholesterolemia: No Liver Disease: No Psychiatric Problems: Yes (depression,adhd) Seizures: No Thyroid Disease: No - Surgical History Abdominal Surgery: No Appendectomy: No Cardiac Surgery: No Cholecystectomy: No Lung Surgery: No Neurologic Surgery: No Orthopedic Surgery: Yes (ENRICO X 1 2016) - Immunization History Immunization Up to Date: No - Suicide/Smoking/Psychosocial Hx Smoking History: Never smoked Have you smoked in the past 12 months: No If you are a former smoker, when did you quit?: 1969 Information on smoking cessation initiated: No Hx Alcohol Use: No Drug/Substance Use Hx: No Substance Use Type: None Hx Substance Use Treatment: No Review of Systems - Review of Systems Comments:: 06/23/18 21:29 GENERAL/CONSTITUTIONAL: No fever or chills. No weakness. HEAD, EYES, EARS, NOSE AND THROAT: No change in vision. No ear pain or discharge. No sore throat. CARDIOVASCULAR: No chest pain or shortness of breath RESPIRATORY: No cough, wheezing, or hemoptysis. GASTROINTESTINAL: No nausea, vomiting, diarrhea or constipation. GENITOURINARY: No dysuria, frequency, or change in urination. MUSCULOSKELETAL: +l hip and lower back pain SKIN: No rash NEUROLOGIC: No headache, vertigo, loss of consciousness, or change in strength/ sensation. ENDOCRINE: No increased thirst. No abnormal weight change HEMATOLOGIC/LYMPHATIC: No anemia, easy bleeding, or history of blood clots. ALLERGIC/IMMUNOLOGIC: No hives or skin allergy. *Physical Exam - Vital Signs Last Vital Signs Temp Pulse Resp BP Pulse Ox 98.4 F 67 18 123/84 97 06/23/18 20:28 06/23/18 20:28 06/23/18 20:28 06/23/18 20:28 06/23/18 20:28 - Physical Exam Comments: 06/23/18 21:29 GENERAL: Awake, alert, and fully oriented, in no acute distress BACK: No midline tenderness, +straight leg on right, + right lower lateral tenderness HEAD: No signs of trauma, normocephalic, atraumatic EYES: PERRLA, EOMI, sclera anicteric, conjunctiva clear ENT: Auricles normal inspection, hearing grossly normal, nares patent, oropharynx clear without exudates. Moist mucosa LUNGS: No distress, speaks full sentences, clear to auscultation bilaterally HEART: Regular rate and rhythm, normal S1 and S2, no murmurs, rubs or gallops, peripheral pulses normal and equal bilaterally. ABDOMEN: Soft, nontender, normoactive bowel sounds. No guarding, no rebound. No masses EXTREMITIES: Normal inspection, Normal range of motion, no edema. No clubbing or cyanosis. NEUROLOGICAL: Cranial nerves II through XII grossly intact. Normal speech, no focal sensorimotor deficits SKIN: Warm, Dry, normal turgor, no rashes or lesions noted. ED Treatment Course - RADIOLOGY Radiology Studies Ordered: Category Date Time Status HIP & PELVIS-RIGHT [RAD] Stat Radiology 06/23/18 20:41 Ordered Medical Decision Making - Medical Decision Making 06/23/18 21:31 Patient is a 53F here today with sciatica. Will treat with toradol, ibuprofen and decadron. Patient requesting R hip x-ray. Do not suspect any acute fracture given neurovascularly intact in right leg and no pain to palpation along right hip. Likely discharge. 06/23/18 23:26 X-ray wnl. Patient ambulatory in ED stating pain improved. Discharged with return precautions. *DC/Admit/Observation/Transfer Diagnosis at time of Disposition: Sciatica - Discharge Dispostion Disposition: HOME Condition at time of disposition: Improved Decision to Admit order: No - Referrals Referrals: Bruce Davis MD [Primary Care Provider] - - Patient Instructions Printed Discharge Instructions: DI for Back Pain With Sciatica Additional Instructions: Please take ibuprofen 600mg every 8 hours for the next 3 days for pain. Please return if you have any new, worsening or concerning symptoms. Please follow up with your primary care physician this week. - Post Discharge Activity
[2018-06-23] MEDS ORDERED: ACETAMINOPHEN 325 MG TABLET (FP) ONE (21:25)
[2018-06-23] MEDS ORDERED: DEXAMETHASONE SOD PHOSPHATE 10 MG/1 ML VIAL ONE (21:26)
[2018-06-23] MEDS ORDERED: KETOROLAC TROMETHAMINE 60 MG/2 ML VIAL ONE (21:26)
== END 2018-06-23 23:35 | disposition home or self-care (01) ==
LOC: JER 19:57
PROC: 3E0233Z Introduction of Anti-inflammatory into Muscle, Percutaneous Approach (ICD-10-PCS; principal; 2018-06-23)
DX: M54.30 Sciatica, unspecified side (principal); Z87.891 Personal history of nicotine dependence; F90.9 Attention-deficit hyperactivity disorder, unspecified type
CPT/HCPCS: 73523-TC-FY; 96372; 99282-25

== ENCOUNTER 2018-10-23 05:00 | Inpatient (IN) | payer OTHER ==
[2018-10-22 10:23] VITALS: BMI 33.3
[2018-10-23] MEDS ORDERED: PHENAZOPYRIDINE HCL 100 MG TABLET (FP) PO ONE (07:18)
[2018-10-23] MEDS ORDERED: CEFAZOLIN 2 GM/D5W 2 GM/50 ML ML IVPB ONE (07:19)
[2018-10-23] MEDS ORDERED: fentaNYL CITRATE 250 MCG/5 ML VIAL ONE (07:53)
[2018-10-23] MEDS ORDERED: PROPOFOL 20 ML ONE ×2 (07:53)
[2018-10-23] MEDS ORDERED: DEXAMETHASONE SOD PHOSPHATE 4 MG/1 ML VIAL ONE (07:53)
[2018-10-23] MEDS ORDERED: ROCURONIUM BROMIDE 50 MG/5 ML VIAL ONE ×2 (07:53→09:19)
[2018-10-23] MEDS ORDERED: SUCCINYLCHOLINE CHLORIDE 200 MG/10 ML VIAL ONE (07:53)
[2018-10-23] MEDS ORDERED: MIDAZOLAM HCL 2 MG/2 ML SINGLE DOSE VIAL ONE (07:54)
[2018-10-23] MEDS ORDERED: VASOPRESSIN 20 UNITS/ML VIAL IV ONE (08:01)
[2018-10-23] MEDS ORDERED: ceFAZolin SODIUM 1 GM VIAL IVPB ONE (08:37)
[2018-10-23] MEDS ORDERED: LACTATED RINGERS SOLUTION 1,000 ML IV SCH (09:00)
--- NOTE | 2018-10-23 09:54 | HP ---
History & Physical Update - History History: No Change - Physical Physical: No Change - Assessment Assessment: No Change - Plan Plan: No Change (no change since visit with Dr Chavez on 10/21/18)
[2018-10-23] MEDS ORDERED: BUPIVACAINE HCL/PF 0.5% (5MG/ML) 10 ML VIAL IJ ONE ×2 (09:57→10:42)
[2018-10-23] MEDS ORDERED: NEOSTIGMINE METHYLSULFATE 0.5 MG/ML - 10 ML MDV ONE (10:35)
--- NOTE | 2018-10-23 11:09 | OP ---
Operative Note - Note: Operative Date: 10/23/18 Pre-Operative Diagnosis: Leiomyomas Operation: Robotic Assisted laparoscopic hysterectomy Findings: as dictated Implants: none Post-Operative Diagnosis: Same as Pre-op Surgeon: Ashlie Chavez Shift Supervisor Film Processing: Myra Tan Anesthesiologist/SURGICAL TECH: Beatriz Epps Anesthesia: General, Local (20cc .5% Marcaine injected to port sites at completion of case) Specimens Removed: Uterus, bilateral tubes Estimated Blood Loss (mls): 40 (ml) Drains & Tubes with Location: none Fluid Volume Replaced (mls): 1,600 (ml LR) Operative Report Dictated: Yes
--- NOTE | 2018-10-23 11:18 | SURG ---
Surgery Dog Raiser Note Dog Raiser: Myra Tan PA-C (Suzy) Date of Service: 10/23/18 Diagnosis: Leiomyomas of uterus Procedure: Robotic Assisted laparoscopic hysterectomy, bilateral salpingectomy I was present for the entirety of the operative procedure. For further detail, please refer to operative report. Visit type - Case Type Case Type: Scheduled - Emergency Emergency Visit: No - New patient This patient is new to me today: Yes Date on this admission: 10/23/18 - Critical Care Critical Care patient: No
[2018-10-23] MEDS ORDERED: HYDROmorphone HCl 2 MG/ML VIAL ONE (12:09)
[2018-10-23] MEDS ORDERED: HYDROmorphone *PCA* 10MG/50ML DISP.SYRIN PCA ONE (12:15)
--- NOTE | 2018-10-23 12:19 | OP ---
DATE OF OPERATION: 10/23/2018 PREOPERATIVE DIAGNOSES: Leiomyomatous uterus, menorrhagia, uterine prolapse and intramural myomas. OPERATION: Laparoscopic robotic total hysterectomy and bilateral salpingectomy. SURGEON: Yariel Epstein MD ASSISTANTS: CLARISSE Ortiz and Aster Tan. HEALTH SAFETY SPECIALIST: Beatriz Fountain CRNA ESTIMATED BLOOD LOSS: 40 mL. PROCEDURE: Patient was taken to the operating room, placed in dorsal lithotomy position, prepped and draped in the usual sterile fashion. Timeout was performed in accordance with hospital regulation. Lieberman catheter had been inserted in the bladder after Dr. Sahu had performed a sling. Attention was then drawn to the cervix where a tenaculum was used to grasp the anterior lip of the cervix. Cervix was then dilated to accommodate the large uterine manipulator. Manipulator was inserted and attention was then drawn to the umbilicus. An 8-mm umbilical incision was then made. Veress needle was inserted into the cavity. Approximately 3 to 4 L of CO2 was insufflated in the cavity. Veress needle was then removed and an 8-mm trocar was then inserted. Laparoscope and camera were attached. Visualization revealed a leiomyomatous uterus. Uterus was noted to have multiple myomas, serosal myomas protruding through on the right side and also posteriorly. Two trocars were placed on the left, 1 in the upper abdomen, 1 parallel to the umbilical incision. Incision scalpel was then made and trocar was inserted without injury to underlying viscera. The AirSeal cannula was inserted in the upper abdomen. Two trocars were inserted on the right 8 mm apart and 8-mm incision trocars were then inserted under direct visualization. The Da Sara robot was then side-docked to the patient's bedside and trocars were then inserted on to the Da Sara robot. The vessel sealer was placed on the left and the Endoshears and tenaculum were placed on the right. Grasp of the uterus was then done and the uteroovarian ligament was then identified on the left and clamped and cut. Uterine arteries were identified and clamped and cut. Vesicouterine reflection was then entered using Endoshears and bladder was bluntly dissected out of the operative field. The same procedure was repeated on the right. Uteroovarian ligament was identified, clamped and cut. Uterine arteries were identified, clamped and cut. Cardinal ligament was identified, clamped and cut down to the level of the cervix. Bladder had been bluntly dissected out of the operative field. Ureters were identified prior to the start of the case and found to have peristalsis. The vagina was then entered using Endoshears and circumferential incision was then made after all ligaments were taken down to the level of the vagina. After cervix had been removed the cervix and uterus were removed through the vagina. The portions of the tube were also removed using LigaSure, both the left and right portion of the tube. Patient had had a previous tubal ligation and the portions of the tube were then removed through the vagina. The 2-0 V-Loc suture was passed through the vagina and continuous stitch using V-Loc suture on the vagina was then done. After vagina had been closed the needle was removed. Irrigation done. Hemostasis achieved. The instruments were removed. Da Sara robot was undocked and removed from the patient's bedside. Trocars were then removed and incisions were then closed using 3-0 Vicryl in subcuticular fashion. Marcaine was infiltrated. Wound was washed and dressed. Estimated blood loss was 40 mL. Prior to the end of the case the ureters were identified and found to have peristalsis. The patient had tolerated the procedure well, was taken to the recovery room in stable condition. Pack count was noted to be normal. YARIEL EPSTEIN M.D. [id number] MTDD
[2018-10-23] MEDS ORDERED: oxyCODONE HCL 5 MG TABLET PO PRN ×2 (12:21)
[2018-10-23] MEDS: HYDROmorphone *PCA* 10MG/50ML DISP.SYRIN PCA SCH (12:21)
[2018-10-23] MEDS ORDERED: HYDROmorphone HCL CARPU-JECT 2 MG/1 ML DISP.SYRIN IVPUSH ONE (12:30)
[2018-10-23] MEDS: LACTATED RINGERS SOLUTION 1,000 ML/1,000 ML INFUS.BAG IV SCH ×2 (15:15→22:33)
[2018-10-23] MEDS ORDERED: ACETAMINOPHEN 325 MG TABLET (FP) PO PRN (17:30)
[2018-10-23] MEDS: ONDANSETRON 4 MG/2 ML VIAL IVPUSH PRN (18:52)
[2018-10-23] MEDS: CEFAZOLIN 2 GM/D5W 2 GM/50 ML ML IVPB SCH (18:52)
[2018-10-23 20:19] LABS: BASO % 0.1 % (0-2.0); EOS % 0.1 % (0-4.5); HEMATOCRIT 34.8 % (32.4-45.2); LYMPH % 7.9 % (8-40); MCHC 34.4 g/dl (32.0-36.0); MEAN PLT VOLUME 9.1 fl (7.5-11.1); MONO % 5.8 % (3.8-10.2); NEUT % 86.1 % (42.8-82.8); PLATELET COUNT 264 K/MM3 (134-434); RBC 3.63 M/mm3 (3.60-5.2); RDW 14.5 % (11.6-15.6); WHITE BLOOD COUNT 9.3 K/mm3 (4.0-10.0)
[2018-10-23 20:34] LABS: ANION GAP 6 MMOL/L (8-16); BLOOD UREA NITROGEN 18 mg/dL (7-18); CALCIUM 9.2 mg/dL (8.5-10.1); CHLORIDE 104 mmol/L (98-107); CO2 29 mmol/L (21-32); CREATININE 0.9 mg/dL (0.55-1.3); GLUCOSE,RANDOM 92 mg/dL (74-106); POTASSIUM 4.5 mmol/L (3.5-5.1); SODIUM 139 mmol/L (136-145)
--- NOTE | 2018-10-23 21:40 | OP ---
Operative Note - Note: Operative Date: 10/23/18 Pre-Operative Diagnosis: Leiomyomatous Uterus. Postmenopausal bleeding. Intramural myoma. Subserosal myoma Operation: Laparoscopic Robotic Total Hysterectomy. Bilateral salpingectomy Findings: Large leiomyomatous uterus 14 cm Subserosal myomas Post-Operative Diagnosis: Same as Pre-op Surgeon: Ashlie Cahvez Icu Clerk: Myra Tan (James Sun) Anesthesia: General Estimated Blood Loss (mls): 40 Operative Report Dictated: Yes
[2018-10-23] MEDS: GABAPENTIN 400 MG CAPSULE (FP) PO SCH ×2 (21:44→21:47)
[2018-10-24] MEDS: ONDANSETRON 4 MG/2 ML VIAL IVPUSH PRN (02:43)
[2018-10-24] MEDS: CEFAZOLIN 2 GM/D5W 2 GM/50 ML ML IVPB SCH (06:42)
[2018-10-24] MEDS: LACTATED RINGERS SOLUTION 1,000 ML/1,000 ML INFUS.BAG IV SCH ×2 (06:42→12:45)
[2018-10-24] MEDS ORDERED: ONDANSETRON 4 MG/2 ML VIAL IVPUSH PRN (08:38)
[2018-10-24] MEDS ORDERED: ACETAMINOPHEN 1000 MG/100 ML VIAL (NON FORMULARY) IVPB ONE (08:45)
[2018-10-24] MEDS: ENOXAPARIN NA (PORCINE) 40 MG/0.4 ML DISP.SYRIN SQ SCH (09:04)
[2018-10-24] MEDS: DULoxetine HCL 30 MG CAPSULE.DR (FP) PO SCH (09:05)
[2018-10-24] MEDS: DOCUSATE SODIUM 100 MG CAPSULE (FP) PO SCH ×3 (09:05→21:02)
[2018-10-24] MEDS: oxyCODONE HCL 5 MG TABLET PO PRN ×2 (09:10→20:28)
[2018-10-24] MEDS: GABAPENTIN 400 MG CAPSULE (FP) PO SCH ×2 (09:10→21:03)
--- NOTE | 2018-10-24 09:21 | PN ---
Progress Note (short form) - Note Progress Note: POD 1, S/P Laparoscopic Robotic Total Hysterectomy, Bilateral salpingectomy Pt seen and examined. Endorses headache from her du-rag being tied too tightly. Also c/o back and hip pain (chronic). C/O nausea. Has not been oob, Lieberman still in place. Minimal vaginal bleeding. Tolerating clears. Denies cp/sob, vomiting, diarrhea, calf pain/edema. Vital Signs Temp 97.6 F 10/24/18 09:16 Pulse 84 10/24/18 09:16 Resp 18 10/24/18 09:16 BP 140/92 10/24/18 09:16 Pulse Ox 96 10/23/18 18:07 Intake & Output 10/23/18 10/23/18 10/24/18 11:59 23:59 11:59 Intake Total 2000 500 1050 Output Total 440 1500 700 Balance 1560 -1000 350 Intake: IV 2000 500 1000 LACTATED RINGERS SOLUTION 500 1000 1,000 ml In 1,000 ml @ 125 mls/hr IV ASDIR MANNY Rx#:[id number] IVPB 50 Output: Urine 400 1500 700 Lieberman 700 700 Estimated Blood Loss 40 Other: Bowel Movement No CBC, BMP 10/23/18 19:00 10/23/18 19:00 Gen: awake, alert, writhing in bed from discomfort Resp: cta b/l CV: rrr, s1s2 Abdo: soft, nt/nd, band-aids in place, c/d/i, no palpable hematoma. Ext: le's soft, no tenderness, scds in place 53 y/o F w/ PMHx morbid obesity, htn, chronic pain, now s/p Laparoscopic Robotic Total Hysterectomy, Bilateral salpingectomy for Leiomyomatous Uterus/ Postmenopausal bleeding. VSS, afebrile. Labs from yesterday evening stable (this AM labs pending). Endorses h/a and nausea as well as chronic pain to her back/hips. 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
[2018-10-24 09:35] LABS: BASO % 0.2 % (0-2.0); EOS % 0.2 % (0-4.5); HEMATOCRIT 37.5 % (32.4-45.2); HEMOGLOBIN 12.9 GM/dL (10.7-15.3); LYMPH % 13.1 % (8-40); MCH 32.9 pg (25.7-33.7); MCHC 34.3 g/dl (32.0-36.0); MEAN PLT VOLUME 9.3 fl (7.5-11.1); MONO % 5.6 % (3.8-10.2); NEUT % 80.9 % (42.8-82.8); PLATELET COUNT 266 K/MM3 (134-434); RBC 3.91 M/mm3 (3.60-5.2); RDW 14.3 % (11.6-15.6); WHITE BLOOD COUNT 7.7 K/mm3 (4.0-10.0)
[2018-10-24 09:58] LABS: ANION GAP 9 MMOL/L (8-16); BLOOD UREA NITROGEN 13 mg/dL (7-18); CALCIUM 9.8 mg/dL (8.5-10.1); CHLORIDE 104 mmol/L (98-107); CO2 27 mmol/L (21-32); CREATININE 0.9 mg/dL (0.55-1.3); GLUCOSE,RANDOM 78 mg/dL (74-106); POTASSIUM 3.9 mmol/L (3.5-5.1); SODIUM 140 mmol/L (136-145)
[2018-10-24] MEDS ORDERED: ATOMOXETINE HCL 80 MG PO SCH (10:00)
[2018-10-24] MEDS ORDERED: oxyCODONE HCL 5 MG TABLET PO PRN (10:21)
[2018-10-24] MEDS: HYDROmorphone *PCA* 10MG/50ML DISP.SYRIN PCA SCH (12:46)
--- NOTE | 2018-10-24 15:10 | PN ---
Progress Note (short form) - Note Progress Note: POD #1 - s/p robotic hysterectomy under GA with dilaudid VP OF MARKETING for post-op pain management. VSS. Pt. doing well, resting comfortably in bed. Pt. had some nausea earlier - treated with zofran. VP [employer]ET[employer] was discontinued and oxycodone ordered. Pt. feeling better. No apparent anesthetic complications noted. Continue current care.
[2018-10-24] MEDS ORDERED: ACETAMINOPHEN 325 MG TABLET (FP) PO PRN (15:30)
[2018-10-24] MEDS ORDERED: ONDANSETRON *ODT* 4 MG TABLET SL PRN (16:38)
[2018-10-25 06:43] VITALS: BP 138/94; PULSE 82; TEMP 98.2
[2018-10-25] MEDS: DOCUSATE SODIUM 100 MG CAPSULE (FP) PO SCH (09:05)
[2018-10-25] MEDS: DULoxetine HCL 30 MG CAPSULE.DR (FP) PO SCH (09:06)
[2018-10-25] MEDS: ENOXAPARIN NA (PORCINE) 40 MG/0.4 ML DISP.SYRIN SQ SCH (09:06)
[2018-10-25] MEDS: GABAPENTIN 400 MG CAPSULE (FP) PO SCH (09:07)
--- NOTE | 2018-10-25 12:22 | PN ---
Progress Note (SOAP) - Subjective Chief Complaint: Pt eating and feeling better + flatus - Current Medications Current Medications: Active Medications Acetaminophen (Tylenol -) 650 mg PO Q6H PRN PRN Reason: PAIN OR FEVER Last Admin: 10/25/18 08:55 Dose: 650 mg Docusate Sodium (Colace -) 100 mg PO BID [facility] Last Admin: 10/25/18 09:05 Dose: 100 mg Duloxetine HCl (Cymbalta -) 60 mg PO DAILY [facility] Last Admin: 10/25/18 09:06 Dose: 60 mg Enoxaparin Sodium (Lovenox -) 40 mg SQ DAILY [facility] Last Admin: 10/25/18 09:06 Dose: 40 mg Gabapentin (Neurontin -) 800 mg PO BID [facility] Last Admin: 10/25/18 09:07 Dose: 800 mg Lactated Ringer's (Lactated Ringers Solution) 1,000 ml in 1,000 mls @ 125 mls/ hr IV ASDIR [facility] Last Admin: 10/24/18 12:45 Dose: Not Given Metoprolol Succinate (Toprol Xl -) 50 mg PO DAILY [facility] Last Admin: 10/25/18 09:07 Dose: 50 mg Non-Formulary Medication (Atomoxetine Hcl [Strattera]) 80 mg PO DAILY [facility] Ondansetron HCl (Zofran Odt -) 4 mg SL Q6H PRN PRN Reason: NAUSEA AND/OR VOMITING Last Admin: 10/24/18 21:02 Dose: 4 mg Oxycodone HCl (Roxicodone -) 5 mg PO Q4H PRN PRN Reason: PAIN LEVEL 1-5 Oxycodone HCl (Roxicodone -) 10 mg PO Q4H PRN PRN Reason: PAIN LEVEL 6-10 Last Admin: 10/24/18 20:28 Dose: 10 mg - Objective Vital Signs: Vital Signs Temperature 98.2 F 10/25/18 06:00 Pulse Rate 82 10/25/18 06:00 Respiratory Rate 20 10/25/18 09:00 Blood Pressure 138/94 10/25/18 06:00 O2 Sat by Pulse Oximetry (%) 96 10/23/18 18:07 Constitutional: Yes: Well Nourished, No Distress, Calm Cardiovascular: Yes: WNL Gastrointestinal: Yes: WNL, Soft, Abdomen, Obese Extremities: Yes: WNL Peripheral Pulses WNL: No Edema: No Wound/Incision: Yes: Clean/Dry, Dressing Dry and Intact Neurological: Yes: WNL, Alert, Oriented Labs Lab Results: CBC, BMP 10/24/18 09:03 10/24/18 09:03 Assessment/Plan POD 2 + flatus Plan DC home RTO 2 week Percocet prn
--- NOTE | 2018-10-29 17:35 | PATH ---
Surgical Pathology Report Patient Name: LISETTE SWANSON Med. Rec. #: [id number] /Age/Gender: 1965 (Age: 53) / F Account: [id number] Location: [facility] MED/SURG Taken: 10/23/2018 Received: 10/23/2018 Reported: 10/29/2018 Physicians: Ashlie Chavez M.D. Specimen(s) Received A: UTERUS AND CERVIX B: RIGHT FALLOPIAN TUBE C: LEFT FALLOPIAN TUBE Clinical History Uterine prolapse, neoplasm Final Diagnosis A. UTERUS AND CERVIX, ROBOTIC LAPAROSCOPIC HYSTERECTOMY: INTRAMURAL LEIOMYOMA(TA). DENUDED ENDOMETRIAL SURFACE; NO GLANDULAR COMPONENT IDENTIFIED. UNREMARKABLE CERVIX. B. FALLOPIAN TUBE, RIGHT, ROBOTIC ASSISTED SALPINGECTOMY: UNREMARKABLE FALLOPIAN TUBE (INCLUDING FIMBRIATED END AND FULL LUMINAL PORTION). C. FALLOPIAN TUBE, LEFT, ROBOTIC ASSISTED SALPINGECTOMY: UNREMARKABLE FALLOPIAN TUBE (INCLUDING FIMBRIATED END AND FULL LUMINAL PORTION). Electronically Signed Kasia Montana M.D. Gross Description A. Received in formalin labeled "uterus and cervix," is a 165 g uterus with an attached cervix and no attached adnexa. The specimen measures 9 cm from superior to inferior, 7 cm from left to right and 5.5 cm from anterior to posterior. The serosa is willett-barragan and smooth. The attached cervix measures 2.7 cm in length and averages 2.5 cm in diameter. The ectocervix is willett, smooth and glistening. The endocervix is unremarkable. The endometrial cavity measures 4 cm in length a 1 cm from cornu to cornu. The endometrium is willett and averages 0.1 cm in thickness. The myometrium displays abundant intramural nodules, measuring up to 4.3 cm in greatest dimension. The cut surface of the nodules is willett and rubbery with a whorled architecture. No areas of hemorrhage or necrosis are identified. The remaining myometrium is willett-pink and measures up to 3.5 cm in thickness. Entire endometrial cavity/endometrium is submitted. Pellet Machine Operator sections are submitted in 8 cassettes as follows: 1-anterior cervix; 2-posterior cervix; 4-8-wnbfzxfd endomyometrium; 1-6-pdodvclul endomyometrium; 7-intramural nodules; 8-largest intramural nodule, A9-15: Endometrium/endometrial cavity. B. Received in formalin labeled "right fallopian tube," is a 2.8 cm in length fimbriated fallopian tube. The outer surface is willett elliott and smooth. Sectioning reveals an unremarkable lumen. Pellet Machine Operator sections are submitted in 2 cassettes as follows: 1-fimbria; 2-cross sections of fallopian tube. C. Received in formalin labeled "left fallopian tube," is a 1.8 cm in length fimbriated fallopian tube. The outer surface is willett-barragan and smooth. Sectioning reveals an unremarkable lumen. Pellet Machine Operator sections are submitted in 2 cassettes as follows: 1-fimbria; 2-cross sections of fallopian tube. 10/24/2018 [facility]10/24/2018
--- NOTE | 2018-10-30 15:58 | OP ---
DATE OF OPERATION: 10/23/2018 PREOPERATIVE DIAGNOSES: Stress urinary incontinence, hypermobile urethra. POSTOPERATIVE DIAGNOSES: Stress urinary incontinence, hypermobile urethra. PROCEDURE: Suburethral sling placement and cystoscopy. SURGEON: Ferny Sahu MD ESTIMATED BLOOD LOSS: 50 mL DRAINS: A Lieberman catheter. PREOPERATIVE INDICATIONS: The patient has stress urinary incontinence and hypermobile urethra on Valsalva. Her history is also consistent with stress urinary incontinence. She is also here to have a robotic hysterectomy. This is the urology portion of the procedure. DESCRIPTION OF OPERATION: The patient was brought to the OR, placed on the table in supine position. Given general anesthesia and IV antibiotics and placed in the modified lithotomy position. The groin was prepped and draped sterilely. Timeouts were performed. Lieberman catheter was placed. The mid portion of the urethra was marked out and injected with Pitressin. Incision was made over the middle third of the urethra. The vaginal mucosa was sharply dissected off the periurethral tissues in a lateral fashion. The bladder was emptied. Using trocars under fingertip control, the sling was placed, first into the right side toward the obturator canal and then on the left side toward the obturator canal. Cystoscopy was then performed. No evidence of perforation was seen. Bilateral ureteral efflux was seen. The sling was then tightened appropriately, laying tension free on the mid portion of the urethra in a flat way. The tightening suture was removed. The mucosa was closed with 2-0 Vicryl suture in a running fashion. Lieberman catheter left in place. David [id number]
--- NOTE | 2018-11-21 13:58 | DS ---
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 Vital Signs: Vital Signs Temperature 98.2 F 10/25/18 06:00 Pulse Rate 82 10/25/18 06:00 Respiratory Rate 20 10/25/18 09:00 Blood Pressure 138/94 10/25/18 06:00 O2 Sat by Pulse Oximetry (%) 96 10/23/18 18:07 Constitutional: Yes: Well Nourished, No Distress HENT: Yes: WNL Neck: Yes: WNL Cardiovascular: Yes: WNL, Regular Rate and Rhythm Respiratory: Yes: WNL, Regular, CTA Bilaterally Gastrointestinal: Yes: WNL Breast(s): Yes: WNL Musculoskeletal: Yes: WNL Extremities: Yes: WNL Edema: No Wound/Incision: Yes: Clean/Dry, Well Approximated Neurological: Yes: WNL, Alert, Oriented Labs: CBC, BMP 10/24/18 09:03 10/24/18 09:03 Discharge Summary Reason For Visit: UTERINE PROLAPSE, NEOPLASM Procedures: Principal: Laparoscopic robotic hysterectomy. bilateral salpingectomy Hospital Course: unremarkable Condition: Good - Instructions Diet, Activity, Other Instructions: Dr. Ashlie Chavez Human Relations Professor discharge instructions Physical activity Resume your normal everyday activity as tolerated no heavy lifting or exercise until seen by your surgeon. You may walk unlimited tayo of and climb stairs. You may resume driving the car when you feel safe and comfortable behind the wheel. No sexual activity as instructed by Dr. Chavez. Wound care If you have a bandage, leave it on, and keep dry for 48-72 hours. After that time discard the outer bandage. If they are tapes on the skin under the out of bandage leave them in place. They will peel off in the next 7 to 10 days. Do Not Peel them off. You may shower the day after surgery. Take the top band-aid off, keep the steri-strips in place (small white strips), these will come off on their won over the next few days. Allow soap and water to run over the incisions, do not scrub the incisions. Pat dry well after. Diet There are no dietary restrictions. Eat healthy, high-fiber foods. Drink 6 to 8 glasses of liquid each day. This will assist in keeping your bowels are regular. If you experience constipation we recommend an over the counter stool softener, take as directed. Pain management You may take Tylenol (Acetaminophen) for mild pain. Do not take more than 4g ( 4000mg) in 24 hours as this can lead to liver damage/failure. You have been prescribed a narcotic pain medication for moderate to severe pain. Please take as directed. Do not drive, drink alcohol or operate heavy machinery while taking narcotic pain medications. Call Dr. Chavez for any of the following: Severe pain not relieved by medication Fever of 101 or higher Excessive bleeding or drainage on dressing Inability to urinate ISTOP reference: [id number]. Pt received 30 day supply for Staley 5-325 on 09/[address] Gr (pain management). Call the office at [phone] for an appointment in seven days. Disposition: HOME - Home Medications Comprehensive Discharge Medication List: Ambulatory Orders Metoprolol Succinate [Toprol Xl] 50 mg PO DAILY 05/19/16 Atomoxetine HCl [Strattera] 80 mg PO DAILY 08/20/16 Gabapentin 800 mg PO PRN PRN 03/24/18 Duloxetine HCl [Cymbalta -] 60 mg PO DAILY 10/21/18 Hydrocodone/Acetaminophen [Vicodin 5-300 mg Tablet] 1 each PO PRN PRN 10/23/18 Duloxetine HCl [Cymbalta] 60 mg PO DAILY #14 capsule. 10/25/18 Oxycodone HCl/Acetaminophen [Percocet 5-325 mg Tablet] 1 tab PO Q4H #20 tablet MDD 6 10/25/18
== END 2018-10-25 13:46 | disposition home or self-care (01) | DRG 519 ==
LOC: JASUSAT 05:00 → EDSTATUS 09:41 → J8W 15:26 → JASUSAT 15:27 → J8W 15:27
PROVIDERS: ADMIT Obstetrics & Gynecology; ATTEND Obstetrics & Gynecology
PROC: 8E0W8CZ Robotic Assisted Procedure of Trunk Region, Via Natural or Artificial Opening Endoscopic (ICD-10-PCS; 2018-10-23)
PROC: 0UT9FZZ Resection of Uterus, Via Natural or Artificial Opening With Percutaneous Endoscopic Assistance (ICD-10-PCS; principal; 2018-10-23 08:00)
PROC: 0UT7FZZ Resection of Bilateral Fallopian Tubes, Via Natural or Artificial Opening With Percutaneous Endoscopic Assistance (ICD-10-PCS; 2018-10-23 08:00)
DX: D25.9 Leiomyoma of uterus, unspecified (principal); N95.0 Postmenopausal bleeding; N81.4 Uterovaginal prolapse, unspecified; D25.1 Intramural leiomyoma of uterus; N92.0 Excessive and frequent menstruation with regular cycle; E66.9 Obesity, unspecified; Z68.33 Body mass index [BMI] 33.0-33.9, adult
CPT/HCPCS: 36415; 80048; 85025; 86850; 86900; 86901; 88302-TC; 88307-TC; 94760; J0131; Q0162

== ENCOUNTER 2019-03-26 21:46 | Emergency (ER) | payer OTHER ==
[2019-03-26 21:54] VITALS: BMI 33.9
--- NOTE | 2019-03-26 21:55 | PDOC ---
Rapid Medical Evaluation Chief Complaint: Sore Throat Time Seen by Provider: 03/26/19 21:49 Medical Evaluation: Allergies Allergy/AdvReac Type Severity Reaction Status Date / Time naproxen Allergy Rash Verified 08/20/18 13:48 03/26/19 21:52 I have performed a brief in-person evaluation of this patient. The patient presents with a chief complaint of: sore throat Pertinent physical exam findings:stable and in NAD, non-focal I have ordered the following: rapid strep The patient will proceed to the ED for further evaluation.
--- NOTE | 2019-03-26 23:35 | PDOC ---
History of Present Illness - General Chief Complaint: Sore Throat Stated Complaint: SORE THROAT Time Seen by Provider: 03/26/19 21:49 History Source: Patient Exam Limitations: No Limitations Past History - Past Medical History Allergies/Adverse Reactions: Allergies Allergy/AdvReac Type Severity Reaction Status Date / Time naproxen Allergy Rash Verified 03/26/19 21:53 Home Medications: Ambulatory Orders Metoprolol Succinate [Toprol Xl] 50 mg PO DAILY 05/19/16 Atomoxetine HCl [Strattera] 80 mg PO DAILY 08/20/16 Gabapentin 800 mg PO PRN PRN 03/24/18 Duloxetine HCl [Cymbalta -] 60 mg PO DAILY 10/21/18 Hydrocodone/Acetaminophen [Vicodin 5-300 mg Tablet] 1 each PO PRN PRN 10/23/18 Duloxetine HCl [Cymbalta] 60 mg PO DAILY #14 capsule. 10/25/18 Oxycodone HCl/Acetaminophen [Percocet 5-325 mg Tablet] 1 tab PO Q4H #20 tablet MDD 6 10/25/18 Anemia: No Asthma: No Cancer: No Cardiac Disorders: No (HAD RIGHT SIDED PAIN SEVERAL MONTHS AGO- SEEN BY CARIOLOGIST- NEGATIVE) CVA: No COPD: No CHF: No Dementia: No Diabetes: No GI Disorders: No Disorders: No HTN: Yes (DX 2011) Hypercholesterolemia: No Liver Disease: No Psychiatric Problems: Yes (depression,adhd) Seizures: No Thyroid Disease: No - Surgical History Abdominal Surgery: No Appendectomy: No Cardiac Surgery: No Cholecystectomy: No Lung Surgery: No Neurologic Surgery: No Orthopedic Surgery: Yes ([place]) - Immunization History Immunization Up to Date: No - Suicide/Smoking/Psychosocial Hx Smoking History: Never smoked Have you smoked in the past 12 months: No If you are a former smoker, when did you quit?: 1969 Information on smoking cessation initiated: No Hx Alcohol Use: No Drug/Substance Use Hx: No Substance Use Type: None Hx Substance Use Treatment: No *Physical Exam - Vital Signs Last Vital Signs Temp Pulse Resp BP Pulse Ox 98.0 F 77 18 156/91 100 03/26/19 21:51 03/26/19 21:51 03/26/19 21:51 03/26/19 21:51 03/26/19 21:51 - Physical Exam General Appearance: No: Apparent Distress HEENT: positive: TMs Normal. negative: Muffled/Hoarse voice, Pharyngeal Erythema Respiratory/Chest: positive: Lungs Clear, Normal Breath Sounds. negative: Respiratory Distress Cardiovascular: positive: Regular Rhythm, Regular Rate, S1, S2. negative: Murmur Gastrointestinal/Abdominal: positive: Normal Bowel Sounds, Soft. negative: Tender, Distended, Guarding, Rebound Integumentary: positive: Normal Color Neurologic: positive: Alert, Normal Mood/Affect Medical Decision Making - Medical Decision Making 54 y/o F with hx of HTN, depression, s/p tonsillectomy presents with concern for possible strep infection. States her throat has been hurting for the past few days, but was particularly worse today. Her grandson was recently dx with strep throat 2 days ago and is taking antibiotics. Also has slight itching sensation in R ear. Denies fever, cough, sob, cp, abd pain, n/v/d Rapid strep negative Stable for dc 03/26/19 23:32 *DC/Admit/Observation/Transfer Diagnosis at time of Disposition: Throat pain - Discharge Dispostion Disposition: HOME Condition at time of disposition: Stable Decision to Admit order: No - Referrals Referrals: Bruce Davis MD [Primary Care Provider] - 2 Days - Patient Instructions Printed Discharge Instructions: DI for Viral Pharyngitis Additional Instructions: Thank you for choosing . It was a pleasure taking care of you. You were tested negative for strep throat Take Motrin 600 mg every 6 hours as needed for pain. Take with food Do salt water gargles If your throat culture is positive, you will get a callback. Follow-up with your doctor in 2-3 days Return to the Emergency Department if your symptoms worsen or persist or have other concerning symptoms. - Post Discharge Activity
[2019-03-27 00:56] VITALS: BP 150/88; PULSE 80; TEMP 98.1
== END 2019-03-26 23:40 | disposition home or self-care (01) ==
LOC: JERFT 21:46 → JER 21:46
DX: J02.9 Acute pharyngitis, unspecified (principal); I10 Essential (primary) hypertension; F32.9 Major depressive disorder, single episode, unspecified
CPT/HCPCS: 87070; 87880; 99282-25

== ENCOUNTER 2019-08-13 22:11 | Emergency (ER) | payer OTHER ==
[~2019-08-13 22:11] MED LIST changes: -BETAMET ACET/BETAMET NA PH 30 MG/5 ML VIAL IJ ONE; -BUPIVACAINE HCL/PF 0.25% (2.5MG/ML) 10 ML VIAL IJ ONE; -IOHEXOL 180 MG/1 ML ML IJ ONE; -LIDOCAINE HCL 1%, 10 MG/ML (20ML VIAL) INF ONE; -LIDOCAINE HCL 1%, 10 MG/ML (50 mL VIAL) IJ ONE; +LIDOCAINE PATCH REMOVAL MC SCH
[2019-08-13 22:24] VITALS: BMI 34.9
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
[2019-08-13] MEDS ORDERED: CYCLOBENZAPRINE HCL 10 MG TABLET (FP) PO ONE (23:40)
[2019-08-13] MEDS ORDERED: LIDOCAINE 5% TOPICAL PATCH TP ONE (23:40)
[2019-08-13] MEDS ORDERED: LIDOCAINE 5% TOPICAL PATCH ONE (23:59)
[2019-08-13] MEDS ORDERED: CYCLOBENZAPRINE HCL 10 MG TABLET (FP) ONE (23:59)
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
[2019-08-14 02:20] VITALS: BP 113/82; PULSE 66; TEMP 97.9
== END 2019-08-14 02:11 | disposition left against medical advice (07) ==
LOC: JER 22:11
DX: Z04.1 Encounter for examination and observation following transport accident (principal); I10 Essential (primary) hypertension; V43.52XA Car driver injured in collision with other type car in traffic accident, initial encounter; Y93.89 Activity, other specified; Y92.488 Other paved roadways as the place of occurrence of the external cause
CPT/HCPCS: 70450-TC; 72125-TC; 99282-25

== ENCOUNTER 2019-09-09 17:52 | Emergency (ER) | payer OTHER ==
[2019-09-09 18:05] VITALS: BP 113/80; PULSE 79; TEMP 98.2; BMI 34.1
--- NOTE | 2019-09-09 18:05 | PDOC ---
Rapid Medical Evaluation Time Seen by Provider: 09/09/19 18:01 Medical Evaluation: Allergies Allergy/AdvReac Type Severity Reaction Status Date / Time naproxen Allergy Rash Verified 08/13/19 22:24 09/09/19 18:01 I have performed a brief in-person evaluation of this patient. The patient presents with a chief complaint of: skin rash Pertinent physical exam findings:stable and in NAD, non-focal I have ordered the following: n/a The patient will proceed to the ED for further evaluation.
--- NOTE | 2019-09-09 18:34 | PDOC ---
History of Present Illness - General Chief Complaint: Rash Stated Complaint: L/FOOT/HEAD/PAIN/EVALUATION Time Seen by Provider: 09/09/19 18:01 - History of Present Illness Initial Comments: 09/09/19 18:23 CHIEF COMPLAINT: rash HISTORY OF PRESENT ILLNESS: 54 yo F presents to [facility] with rash. Patient reports she was diagnosed with latent syphilis recently and treated at a clinic "with all the antibiotics," (last treatment regimen 2 weeks ago) but she noticed new lesions on her skin come up in the past few days. She went back to the clinic today where she received a referral to infectious disease and to dermatology. She reports she did not want to wait longer to get another treatment so she came to the ER. No recent travel or sick contacts. PAST MEDICAL HISTORY: Denies past medical history FAMILY HISTORY: Denies SOCIAL HISTORY: Denies tobacco, alcohol, illicit drug use. SURGICAL HISTORY: Denies ALLERGIES: No known drug allergies REVIEW OF SYSTEMS General/Constitutional: Denies fever or chills. Denies weakness, weight change. HEENT: Denies change in vision. Denies ear pain or discharge. Denies sore throat. Cardiovascular: Denies chest pain or shortness of breath. Respiratory: Denies cough, wheezing, or hemoptysis. Gastrointestinal: Denies nausea, vomiting, diarrhea or constipation. Denies rectal bleeding. Genitourinary: Denies dysuria, frequency, or change in urination. Musculoskeletal: Denies joint or muscle swelling or pain. Denies neck or back pain. Skin and breasts: Denies rash or easy bruising. Neurologic: Denies headache, vertigo, loss of consciousness, or loss of sensation. Psychiatric: Denies depression or anxiety. PHYSICAL EXAM General Appearance: Well-appearing, appropriately dressed. No apparent distress , no intoxication. HEENT: EOMI, PERRLA, normal ENT inspection, normal voice, TMs normal, pharynx normal. No conjunctival pallor. No photophobia, scleral icterus. Neck: Supple. Trachea midline. No tenderness, rigidity, carotid bruit, stridor , lymphadenopathy, or thyromegaly. Respiratory/Chest: Lungs CTAB. No shortness of breath, chest tenderness, respiratory distress, accessory muscle use. No crackles, rales, rhonchi, stridor , wheezing, dullness Cardiovascular: RRR. S1, S2. No JVD, murmur, bradycardia, tachycardia. Vascular Pulses: Dorsalis-Pedis (R): 2+, Dorsalis-Pedis (L): 2+ Gastrointestinal/Abdominal: Normal bowel sounds. Abdomen soft, non-distended. No tenderness or rebound tenderness. No organomegaly, pulsatile mass, guarding , hernia, hepatomegaly, splenomegaly. Lymphatic: No adenopathy, tenderness. Musculoskeletal/Extremities: Normal inspection. FROM of all extremities, normal capillary refill. Pelvis Stable. No CVA tenderness. No tenderness to extremities, pedal edema, swelling, erythema or deformity. Integumentary: Scattered erythematous lesions to b/l arms. Appropriate color, dry, warm. 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 Fully oriented, alert. Appropriate mood/affect. Motor strength 5/5. No appreciable EOM palsy, facial droop or sensory deficit. Past History - Past Medical History Allergies/Adverse Reactions: Allergies Allergy/AdvReac Type Severity Reaction Status Date / Time naproxen Allergy Rash Verified 09/09/19 18:05 Home Medications: Ambulatory Orders Metoprolol Succinate [Toprol Xl] 50 mg PO DAILY 05/19/16 Atomoxetine HCl [Strattera] 80 mg PO DAILY 08/20/16 Gabapentin 800 mg PO PRN PRN 03/24/18 Duloxetine HCl [Cymbalta -] 60 mg PO DAILY 10/21/18 Hydrocodone/Acetaminophen [Vicodin 5-300 mg Tablet] 1 each PO PRN PRN 10/23/18 Duloxetine HCl [Cymbalta] 60 mg PO DAILY #14 capsule. 10/25/18 Oxycodone HCl/Acetaminophen [Percocet 5-325 mg Tablet] 1 tab PO Q4H #20 tablet MDD 6 10/25/18 Anemia: No Asthma: No Cancer: No Cardiac Disorders: No (HAD RIGHT SIDED PAIN SEVERAL MONTHS AGO- SEEN BY CARIOLOGIST- NEGATIVE) CVA: No COPD: No CHF: No Dementia: No Diabetes: No GI Disorders: No Disorders: No HTN: Yes (DX 2011) Hypercholesterolemia: No Liver Disease: No Psychiatric Problems: Yes (depression,adhd) Seizures: No Thyroid Disease: No - Surgical History Abdominal Surgery: No Appendectomy: No Cardiac Surgery: No Cholecystectomy: No Lung Surgery: No Neurologic Surgery: No Orthopedic Surgery: Yes ([place]) - Immunization History Immunization Up to Date: No - Psycho Social/Smoking Cessation Hx Smoking History: Never smoked Have you smoked in the past 12 months: No If you are a former smoker, when did you quit?: 1969 Hx Alcohol Use: No Drug/Substance Use Hx: No Substance Use Type: None Hx Substance Use Treatment: No *Physical Exam - Vital Signs Last Vital Signs Temp Pulse Resp BP Pulse Ox 98.2 F 79 16 113/80 98 09/09/19 18:00 09/09/19 18:00 09/09/19 18:00 09/09/19 18:00 09/09/19 18:00 Medical Decision Making - Medical Decision Making 09/09/19 18:34 54 yo F presents to [facility] with rash. Will treat tor latent syphilis given +T. palladim results on patient's medical records. Discussed with patient importance of f/u with infectious disease. Patient verbalized understanding and agrees to plan. Discharge - Discharge Information Problems reviewed: Yes Clinical Impression/Diagnosis: Latent syphilis with positive serology Condition: Stable Disposition: HOME - Admission No - Follow up/Referral Referrals: Bruce Davis MD [Primary Care Provider] - Yung Macias MD [Staff Physician] - - Patient Discharge Instructions Patient Printed Discharge Instructions: DI for Syphilis - Post Discharge Activity
[2019-09-09] MEDS ORDERED: PENICILLIN G BENZATHINE 2,400,000 UNIT/4 ML PFS IM ONE (18:35)
[2019-09-09] MEDS ORDERED: PENICILLIN G BENZATHINE 1,200,000 UNIT/2 ML PFS IM ONE ×2 (18:56→18:59)
== END 2019-09-09 19:06 | disposition home or self-care (01) ==
LOC: JERFT 17:52
DX: A53.0 Latent syphilis, unspecified as early or late (principal); Z88.8 Allergy status to other drugs, medicaments and biological substances; I10 Essential (primary) hypertension; F32.9 Major depressive disorder, single episode, unspecified; F90.9 Attention-deficit hyperactivity disorder, unspecified type; Z87.891 Personal history of nicotine dependence
CPT/HCPCS: 99281-25

== ENCOUNTER 2020-07-16 19:43 | Emergency (ER) | payer OTHER ==
[2020-07-16 19:50] VITALS: BP 115/83; PULSE 79; TEMP 98.6; BMI 30.9
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
== END 2020-07-16 20:50 | disposition home or self-care (01) ==
LOC: JERFT 19:43
DX: Z76.0 Encounter for issue of repeat prescription (principal)
CPT/HCPCS: 99281-25

== ENCOUNTER 2020-08-27 13:13 | Emergency (ER) | payer OTHER ==
[2020-08-27 13:18] VITALS: BP 126/89; PULSE 80; TEMP 97.3; BMI 30.7
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
[2020-08-27] MEDS ORDERED: ACETAMINOPHEN 500 MG TABLET (FP) PO ONE (13:34)
--- NOTE | 2020-08-27 13:40 | PDOC ---
History of Present Illness - General Chief Complaint: Toothache Stated Complaint: TOOTHACHE Time Seen by Provider: 08/27/20 13:26 History Source: Patient Exam Limitations: No Limitations - History of Present Illness Initial Comments: 08/27/20 13:36 Patient is a 55-year-old female who presents to the ED with several months of left lower dental pain. She states over the last week the pain has gotten worse. She has seen a dentist prior to [facility] who told her she needed teeth extracted. She denies any fevers or chills. She takes 600 or 800 mg ibuprofen for back pain and she states that is not helping. She has not tried taking Tylenol. She denies any fevers or chills. The patient has a history of hypertension and states she is allergic to Naprosyn. Past History - Medical History Allergies/Adverse Reactions: Allergies Allergy/AdvReac Type Severity Reaction Status Date / Time naproxen Allergy Rash Verified 08/27/20 13:14 Home Medications: Ambulatory Orders Metoprolol Succinate [Toprol Xl] 50 mg PO DAILY 05/19/16 Atomoxetine HCl [Strattera] 80 mg PO DAILY 08/20/16 Gabapentin 800 mg PO PRN PRN 03/24/18 Duloxetine HCl [Cymbalta -] 60 mg PO DAILY 10/21/18 Hydrocodone/Acetaminophen [Vicodin 5-300 mg Tablet] 1 each PO PRN PRN 10/23/18 Duloxetine HCl [Cymbalta] 60 mg PO DAILY #14 capsule. 10/25/18 Oxycodone HCl/Acetaminophen [Percocet 5-325 mg Tablet] 1 tab PO Q4H #20 tablet MDD 6 10/25/18 Oxycodone HCl/Acetaminophen [Percocet 5-325 mg Tablet] 1 - 2 tab PO BID #15 tab MDD 4 07/16/20 Amoxicillin - [Amoxicillin 500mg Capsule -] 500 mg PO TID 10 Days #30 capsule 08/27/20 Anemia: No Asthma: No Cancer: No Cardiac Disorders: No (HAD RIGHT SIDED PAIN SEVERAL MONTHS AGO- SEEN BY CARIOLOGIST- NEGATIVE) CVA: No COPD: No CHF: No Dementia: No Diabetes: No GI Disorders: No Disorders: No HTN: Yes (DX 2011) Hypercholesterolemia: No Liver Disease: No Psychiatric Problems: Yes (depression,adhd) Seizures: No Thyroid Disease: No - Surgical History Abdominal Surgery: No Appendectomy: No Cardiac Surgery: No Cholecystectomy: No Lung Surgery: No Neurologic Surgery: No Orthopedic Surgery: Yes ([place]) - Immunization History Immunization Up to Date: No - Psycho-Social/Smoking History Smoking History: Never smoked Have you smoked in the past 12 months: No If you are a former smoker, when did you quit?: 1969 - Substance Abuse Hx (Audit-C & DAST Scrn) How often the patient has a drink containing alcohol: Never Score: In Men: 4 or > Positive; In Women: 3 or > Positive: 0 Screen Result (Pos requires Nsg. Audit-10AR): Negative In the last yr the pt used illegal drug/Rx for NonMed reason: No Score: Yes response is considered Positive: 0 Screen Result (Positive result requires Nsg. DAST-10): Negative Review of Systems - Review of Systems Comments:: 08/27/20 13:36 - Review of Systems Able to Perform ROS?: Yes Constitutional: No: Fever, Chills, Loss of Appetite, Night Sweats, Weakness HEENTM: No: Eye Pain, Vision changes, Ear Pain, Throat Pain, Throat Swelling, Mouth Pain, Difficulty Swallowing; positive: Dental pain Respiratory: No: Cough, Shortness of Breath, Wheezing, Sputum Production Cardiac (ROS): No: Chest Pain, Chest Tightness, Palpitations, Irregular Heart Beat, Edema ABD/GI: No: Nausea, Vomiting, Abdominal Pain, Diarrhea : No Dysuria, No Hematuria, No Frequency, No Urgency Musculoskeletal: No: Muscle Pain, Back Pain, Joint Pain, Muscle Weakness, Neck Pain Integumentary: No: Lesions, Rash Neurological: No: Headache, Numbness, Tingling, Weakness, Speech Difficulties *Physical Exam - Vital Signs Last Vital Signs Temp Pulse Resp BP Pulse Ox 97.3 F L 80 20 126/89 100 08/27/20 13:14 08/27/20 13:14 08/27/20 13:14 08/27/20 13:14 08/27/20 13:14 - Physical Exam 08/27/20 13:37 - Physical Exam General Appearance: Nourished, Appropriately Dressed, No Distress HEENT: EOMI, Normal Voice, No Pharyngeal Erythema, No Muffled/Hoarse voice, No Tonsillar Exudate, No Tonsillar Erythema, No Nasal Congestion, No Rhinorrhea, Hearing Grossly Normal, TMs Normal, No TM Bulging, No TM Dullness, No TM Erythema; left mandibular dentition with significant dental caries appreciated. Several teeth with fillings appreciated. Tenderness with tapping the teeth. No obvious abscesses appreciated. Neck: Supple, No Lymphadenopathy (R), No Lymphadenopathy (L), No Rigidity, No Decreased range of motion Respiratory/Chest: Lungs Clear, Normal Breath Sounds. No Respiratory Distress, No Accessory Muscle Use Cardiovascular: Regular Rhythm, Regular Rate, S1, S2 Musculoskeletal: Normal Inspection. No Decreased Range of Motion Extremity: Normal Capillary Refill, Normal Inspection Integumentary: Normal Color, Dry. No Rash Neurologic: sde II-XII NML intact, Fully Oriented, Alert, Normal Mood/Affect, Normal Response Medical Decision Making - Medical Decision Making 08/27/20 13:37 Assessment: Patient is a 55-year-old female with left mandibular dental pain to multiple teeth. Plan: -Tylenol p.o. given in the ED -We will send a prescription for amoxicillin to the patient's pharmacy -She has been instructed that she must follow-up with a dentist for definitive treatment. She understands and agrees to treatment plan she is stable for discharge. Discharge - Discharge Information Problems reviewed: Yes Clinical Impression/Diagnosis: Pain, dental Condition: Stable Disposition: HOME - Additional Discharge Information Prescriptions: Amoxicillin - [Amoxicillin 500mg Capsule -] 500 mg PO TID 10 Days #30 capsule - Follow up/Referral Referrals: Bruce Davis MD [Primary Care Provider] - 24 hours - Patient Discharge Instructions Patient Printed Discharge Instructions: DI for Dental Pain Additional Instructions: Avoid very hot or very cold foods. Be sure to follow-up with a dentist for further evaluation and treatment. Take the antibiotics as prescribed and complete the entire course. Take Tylenol or ibuprofen as needed for pain. - Post Discharge Activity
== END 2020-08-27 13:49 | disposition home or self-care (01) ==
LOC: JER 13:13 → JERFT 13:13
DX: K08.89 Other specified disorders of teeth and supporting structures (principal)
CPT/HCPCS: 99283-25

== ENCOUNTER 2020-10-07 02:21 | Emergency (ER) | payer OTHER ==
[2020-10-07 03:11] VITALS: TEMP 98.3; BMI 29.9
[2020-10-07] MEDS ORDERED: morphine CARPU-JECT 2 MG/1 ML DISP.SYRIN IVPUSH ONE ×2 (03:24)
[2020-10-07] MEDS ORDERED: MORPHINE SULFATE 2 MG/ML VIAL ONE ×2 (03:40→04:34)
[2020-10-07 04:06] LABS: HEMATOCRIT 35.1 % (32.4-45.2); HEMOGLOBIN 11.7 GM/dL (10.7-15.3); MCH 31.9 pg (25.7-33.7); MCHC 33.2 g/dl (32.0-36.0); MEAN CELL VOLUME 96.2 fl (80-96); MEAN PLT VOLUME 10.3 fl (7.5-11.1); PLATELET COUNT 248 K/MM3 (134-434); RBC 3.65 M/mm3 (3.60-5.2); RDW 13.7 % (11.6-15.6); WHITE BLOOD COUNT 7.6 K/mm3 (4.0-10.0)
[2020-10-07 04:40] LABS: ALBUMIN 3.5 g/dl (3.4-5.0); CALCIUM 9.4 mg/dL (8.5-10.1)
[2020-10-07 04:41] LABS: BLOOD UREA NITROGEN 14.2 mg/dL (7-18)
[2020-10-07 04:44] LABS: CREATININE 0.9 mg/dL (0.55-1.3)
[2020-10-07 04:45] LABS: BILIRUBIN,TOTAL 0.3 mg/dL (0.2-1); TOT PROT 6.9 g/dl (6.4-8.2)
[2020-10-07 05:11] VITALS: BP 124/90; PULSE 65
== END 2020-10-07 07:00 | disposition home or self-care (01) ==
LOC: JER 02:21
PROC: 3E0333Z Introduction of Anti-inflammatory into Peripheral Vein, Percutaneous Approach (ICD-10-PCS; principal; 2020-10-07)
DX: M25.511 Pain in right shoulder (principal)
CPT/HCPCS: 36415; 71045-TC-FY; 80053; 85027; 99285-25

== ENCOUNTER 2021-03-04 19:56 | Emergency (ER) | payer OTHER ==
[2021-03-04 20:40] VITALS: BP 126/85; PULSE 68; TEMP 98.1; BMI 31.6
[2021-03-04] MEDS ORDERED: LIDOCAINE 5% TOPICAL PATCH TP ONE (21:54)
[2021-03-04] MEDS ORDERED: LIDOCAINE 5% TOPICAL PATCH ONE (22:10)
[2021-03-05] MEDS ORDERED: LIDOCAINE PATCH REMOVAL MC SCH (10:00)
== END 2021-03-04 23:02 | disposition home or self-care (01) ==
LOC: JER 19:56
DX: M54.5 Low back pain (principal)
CPT/HCPCS: 99283-25

== ENCOUNTER 2021-03-15 23:12 | Emergency (ER) | payer OTHER ==
[2021-03-15 23:28] VITALS: BP 138/85; PULSE 76; TEMP 97.6; BMI 25.8
[2021-03-16] MEDS ORDERED: IBUPROFEN 600 MG TABLET (FP) PO ONE ×2 (00:35→00:49)
[2021-03-16] MEDS ORDERED: ACETAMINOPHEN 325 MG TABLET (FP) PO ONE (00:35)
[2021-03-16] MEDS ORDERED: ACETAMINOPHEN 325 MG TABLET (FP) ONE (00:49)
== END 2021-03-16 01:21 | disposition home or self-care (01) ==
LOC: JER 23:12
DX: G89.4 Chronic pain syndrome (principal)
CPT/HCPCS: 99283-25

== ENCOUNTER 2021-05-06 11:02 | Emergency (ER) | payer OTHER ==
[2021-05-06 11:09] VITALS: BP 110/76; PULSE 84; TEMP 98.1; BMI 31.6
[2021-05-06] MEDS ORDERED: ACETAMINOPHEN 500 MG TABLET (FP) PO ONE (11:37)
[2021-05-06] MEDS ORDERED: ACETAMINOPHEN 500 MG TABLET (FP) ONE (11:40)
== END 2021-05-06 12:36 | disposition home or self-care (01) ==
LOC: JERFT 11:02
DX: M25.561 Pain in right knee (principal)
CPT/HCPCS: 73562-TC-RT-FY; 99283-25

== ENCOUNTER 2021-06-22 23:34 | Emergency (ER) | payer OTHER ==
[2021-06-22 23:42] VITALS: BP 145/88; PULSE 68; TEMP 97.7; BMI 31.4
[2021-06-23] MEDS ORDERED: KETOROLAC TROMETHAMINE 15 MG/ML VIAL IM ONE (02:06)
[2021-06-23] MEDS ORDERED: LIDOCAINE 5% TOPICAL PATCH TP ONE (02:06)
[2021-06-23] MEDS ORDERED: KETOROLAC TROMETHAMINE 15 MG/ML VIAL ONE (02:19)
[2021-06-23] MEDS ORDERED: LIDOCAINE 5% TOPICAL PATCH ONE (02:24)
[2021-06-23] MEDS ORDERED: LIDOCAINE PATCH REMOVAL MC SCH (22:00)
== END 2021-06-23 03:34 | disposition home or self-care (01) ==
LOC: JER 23:34
PROC: 3E0233Z Introduction of Anti-inflammatory into Muscle, Percutaneous Approach (ICD-10-PCS; principal; 2021-06-23)
DX: M54.42 Lumbago with sciatica, left side (principal)
CPT/HCPCS: 99284-25

== ENCOUNTER 2021-11-07 16:13 | Observation (INO) | payer OTHER ==
[2021-11-07] MEDS ORDERED: SODIUM CHLORIDE 0.9% 500 ML INFUS.BAG IV ONE (17:11)
[2021-11-07 18:15] LABS: BASO % 0.5 % (0-2.0); EOS % 0.7 % (0-4.5); HEMATOCRIT 40.8 % (32.4-45.2); HEMOGLOBIN 13.6 GM/dL (10.7-15.3); LYMPH % 13.8 % (8-40); MCH 31.4 pg (25.7-33.7); MCHC 33.3 g/dl (32.0-36.0); MEAN CELL VOLUME 94.2 fl (80-96); MEAN PLT VOLUME 9.8 fl (7.5-11.1); MONO % 4.9 % (3.8-10.2); NEUT % 80.1 % (42.8-82.8); PLATELET COUNT 267 10^3/uL (134-434); RBC 4.33 M/mm3 (3.60-5.2); WHITE BLOOD COUNT 11.8 K/mm3 (4.0-10.0)
[2021-11-07 18:43] LABS: CHLORIDE 106 mmol/L (98-107); SODIUM 141 mmol/L (136-145)
[2021-11-07 18:46] LABS: ANION GAP 8 MMOL/L (8-16); BLOOD UREA NITROGEN 13.6 mg/dL (7-18); CALCIUM 11.3 mg/dL (8.5-10.1); CO2 28 mmol/L (21-32); GLUCOSE,RANDOM 84 mg/dL (74-106)
[2021-11-07 18:49] LABS: CREATININE 1.1 mg/dL (0.55-1.3); SGOT/AST 26 U/L (15-37); SGPT/ALT 26 U/L (13-61)
[2021-11-07 18:51] LABS: BILIRUBIN,TOTAL 0.5 mg/dL (0.2-1); TOT PROT 7.8 g/dl (6.4-8.2)
[2021-11-07 18:52] LABS: ALK PHOS 94 U/L (45-117)
[2021-11-07] MEDS ORDERED: guaiFENesin 200 MG/10 ML 10 ML UNIT-DOSE CUPS PO ONE (19:16)
[2021-11-07 19:17] LABS: URINE APPEARANCE CLEAR; URINE BILIRUBIN NEGATIVE (NEGATIVE); URINE COLOR YELLOW; URINE GLUCOSE (UA) NEGATIVE (NEGATIVE); URINE KETONE NEGATIVE (NEGATIVE); URINE LEUK ESTERASE NEGATIVE (NEGATIVE); URINE NITRITE NEGATIVE (NEGATIVE); URINE PROTEIN NEGATIVE (NEGATIVE); URINE UROBILINOGEN 0.2 mg/dL (0.2-1.0)
[2021-11-07] MEDS ORDERED: guaiFENesin/D-METHORPHAN HB 10 ML UNIT-DOSE CUPS ONE (19:20)
[2021-11-07 19:37] LABS: CALCIUM 10.5 mg/dL (8.5-10.1)
[2021-11-07 19:38] LABS: ALBUMIN 3.7 g/dl (3.4-5.0); BLOOD UREA NITROGEN 12.7 mg/dL (7-18)
[2021-11-07 19:42] LABS: BILIRUBIN,TOTAL 0.4 mg/dL (0.2-1)
[2021-11-07] MEDS ORDERED: METOPROLOL TARTRATE 50 MG TABLET (FP) ONE (23:17)
[2021-11-07] MEDS: METOPROLOL TARTRATE 50 MG TABLET (FP) PO SCH (23:21)
[2021-11-08] MEDS ORDERED: guaiFENesin/CODEINE 5 ML UNIT-DOSE CUPS PO PRN (00:10)
[2021-11-08] MEDS ORDERED: guaiFENesin/CODEINE 5 ML UNIT-DOSE CUPS PO ONE (00:10)
[2021-11-08] MEDS: BENZOCAINE/MENTH/CETYLPYRD CL 1 EACH LOZENGE MM PRN (04:43)
[2021-11-08] MEDS: guaiFENesin/CODEINE 5 ML UNIT-DOSE CUPS PO PRN (04:43)
[2021-11-08] MEDS: HEPARIN NA (PORCINE) 5,000 UNITS/ML 1ML VIAL SQ SCH ×3 (06:35→22:13)
[2021-11-08 06:44] LABS: BASO % 0.2 % (0-2.0); EOS % 1.5 % (0-4.5); HEMATOCRIT 36.9 % (32.4-45.2); HEMOGLOBIN 12.3 GM/dL (10.7-15.3); LYMPH % 23.5 % (8-40); MCH 31.9 pg (25.7-33.7); MCHC 33.3 g/dl (32.0-36.0); MEAN CELL VOLUME 95.8 fl (80-96); MEAN PLT VOLUME 9.4 fl (7.5-11.1); NEUT % 66.8 % (42.8-82.8); PLATELET COUNT 228 10^3/uL (134-434); RBC 3.85 M/mm3 (3.60-5.2); WHITE BLOOD COUNT 7.9 K/mm3 (4.0-10.0)
[2021-11-08 06:59] LABS: CHLORIDE 110 mmol/L (98-107); SODIUM 143 mmol/L (136-145)
[2021-11-08 07:02] LABS: ALBUMIN 3.1 g/dl (3.4-5.0); ANION GAP 3 MMOL/L (8-16); BLOOD UREA NITROGEN 13.5 mg/dL (7-18); CO2 30 mmol/L (21-32); GLUCOSE,RANDOM 91 mg/dL (74-106)
[2021-11-08 07:03] LABS: MAGNESIUM 2.2 mg/dL (1.8-2.4)
[2021-11-08 07:05] LABS: CREATININE 1.1 mg/dL (0.55-1.3); PHOSPHOROUS 3.8 mg/dL (2.5-4.9); SGOT/AST 15 U/L (15-37); SGPT/ALT 20 U/L (13-61)
[2021-11-08 07:06] LABS: BILIRUBIN,TOTAL 0.5 mg/dL (0.2-1); TOT PROT 6.4 g/dl (6.4-8.2)
[2021-11-08 07:08] LABS: ALK PHOS 82 U/L (45-117)
[2021-11-08] MEDS ORDERED: ENOXAPARIN NA (PORCINE) 40 MG/0.4 ML DISP.SYRIN SQ SCH (10:00)
[2021-11-08] MEDS ORDERED: METOPROLOL TARTRATE 50 MG TABLET (FP) ONE (10:43)
[2021-11-08] MEDS: METOPROLOL TARTRATE 50 MG TABLET (FP) PO SCH ×2 (10:46→22:05)
[2021-11-08] MEDS ORDERED: BENZOCAINE/MENTH/CETYLPYRD CL 1 EACH LOZENGE MM ONE ×2 (11:56→13:06)
[2021-11-08] MEDS ORDERED: LIDOCAINE 5% TOPICAL PATCH ONE (15:40)
[2021-11-08] MEDS: LIDOCAINE 5% TOPICAL PATCH TP SCH (15:45)
[2021-11-08] MEDS: ACETAMINOPHEN 325 MG TABLET (FP) PO PRN ×2 (15:45→22:04)
[2021-11-08] MEDS: LIDOCAINE PATCH REMOVAL MC SCH (22:05)
[2021-11-08] MEDS: ATORVASTATIN CA 10 MG TABLET (FP) PO SCH (22:12)
[2021-11-09] MEDS: guaiFENesin/CODEINE 5 ML UNIT-DOSE CUPS PO PRN ×3 (00:25→22:18)
[2021-11-09 01:33] VITALS: BMI 30.4
[2021-11-09] MEDS: HEPARIN NA (PORCINE) 5,000 UNITS/ML 1ML VIAL SQ SCH ×3 (05:38→22:19)
[2021-11-09] MEDS ORDERED: PT OWN MED DRAWER 7, Y5N ONE ×2 (09:29→14:12)
[2021-11-09] MEDS: LIDOCAINE 5% TOPICAL PATCH TP SCH (09:30)
[2021-11-09] MEDS: BENZOCAINE/MENTH/CETYLPYRD CL 1 EACH LOZENGE MM PRN (09:31)
[2021-11-09] MEDS: METOPROLOL TARTRATE 50 MG TABLET (FP) PO SCH ×2 (09:31→22:18)
[2021-11-09] MEDS: ATOMOXETINE HCL 80 MG PO SCH (13:05)
[2021-11-09] MEDS: ACETAMINOPHEN 325 MG TABLET (FP) PO PRN (15:17)
[2021-11-09] MEDS ORDERED: ACETAMINOPHEN 325 MG TABLET (FP) PO PRN (17:00)
[2021-11-09] MEDS: ACETAMINOPHEN 1000 MG/100 ML VIAL IVPB ONE (19:55)
[2021-11-09] MEDS ORDERED: ACETAMINOPHEN 500 MG TABLET (FP) PO PRN (19:58)
[2021-11-09] MEDS: ATORVASTATIN CA 10 MG TABLET (FP) PO SCH (22:18)
[2021-11-09] MEDS: LIDOCAINE PATCH REMOVAL MC SCH (22:19)
[2021-11-10] MEDS: ACETAMINOPHEN 1000 MG/100 ML VIAL IVPB ONE (00:59)
[2021-11-10] MEDS: HEPARIN NA (PORCINE) 5,000 UNITS/ML 1ML VIAL SQ SCH ×2 (06:25→13:30)
[2021-11-10 08:07] LABS: BASO % 0.4 % (0-2.0); EOS % 3.7 % (0-4.5); HEMATOCRIT 38.5 % (32.4-45.2); LYMPH % 37.4 % (8-40); MCH 32.2 pg (25.7-33.7); MCHC 33.9 g/dl (32.0-36.0); MEAN CELL VOLUME 94.9 fl (80-96); MEAN PLT VOLUME 9.1 fl (7.5-11.1); MONO % 9.6 % (3.8-10.2); NEUT % 48.9 % (42.8-82.8); PLATELET COUNT 227 10^3/uL (134-434); RBC 4.05 M/mm3 (3.60-5.2); RDW 13.5 % (11.6-15.6); WHITE BLOOD COUNT 4.7 K/mm3 (4.0-10.0)
[2021-11-10 08:26] LABS: ALBUMIN 3.1 g/dl (3.4-5.0); BLOOD UREA NITROGEN 14.6 mg/dL (7-18); CALCIUM 10.5 mg/dL (8.5-10.1)
[2021-11-10 08:29] LABS: CREATININE 0.9 mg/dL (0.55-1.3)
[2021-11-10 08:30] LABS: CHOLESTEROL 196 mg/dL (50-200)
[2021-11-10 08:31] LABS: BILIRUBIN,TOTAL 0.6 mg/dL (0.2-1); TOT PROT 6.6 g/dl (6.4-8.2); TRIGLYCERIDES 57 mg/dL (0-150)
[2021-11-10 08:32] LABS: LDL CHOLESTEROL (ONLY SJRH) 74 mg/dL (5-100)
[2021-11-10 08:34] LABS: HDL CHOLESTEROL 109 mg/dL (40-60)
[2021-11-10] MEDS: ESCITALOPRAM OXALATE 10 MG TABLET PO SCH ×2 (09:04→09:28)
[2021-11-10] MEDS: LIDOCAINE 5% TOPICAL PATCH TP SCH (09:04)
[2021-11-10] MEDS: METOPROLOL TARTRATE 50 MG TABLET (FP) PO SCH (09:05)
[2021-11-10] MEDS: ATOMOXETINE HCL 80 MG PO SCH (13:31)
[2021-11-10 15:00] VITALS: BP 138/49; PULSE 56; TEMP 98.6
== END 2021-11-10 17:45 | disposition home or self-care (01) ==
LOC: JER 16:13 → JERBED 20:28 → J7W 11-08 19:20
PROVIDERS: ATTEND Internal Medicine
PROC: 3E033NZ Introduction of Analgesics, Hypnotics, Sedatives into Peripheral Vein, Percutaneous Approach (ICD-10-PCS; principal; 2021-11-07)
PROC: 3E023GC Introduction of Other Therapeutic Substance into Muscle, Percutaneous Approach (ICD-10-PCS; 2021-11-07)
PROC: 3E0337Z Introduction of Electrolytic and Water Balance Substance into Peripheral Vein, Percutaneous Approach (ICD-10-PCS; 2021-11-07)
DX: R55 Syncope and collapse (principal); M06.9 Rheumatoid arthritis, unspecified; R53.1 Weakness; I10 Essential (primary) hypertension; E78.5 Hyperlipidemia, unspecified; G89.29 Other chronic pain; F41.8 Other specified anxiety disorders; Z88.8 Allergy status to other drugs, medicaments and biological substances; Z87.891 Personal history of nicotine dependence
CPT/HCPCS: 36415; 71045-TC-FY; 80053; 80061; 81003; 82533; 82550; 82962; 83735; 83970; 84100; 84443; 84484; 85025; 85379; 87086; 87651; 87804; 87807; 93005; 93010; 93306-TC; 96372; 96374; 99285-25; C9803; G0378; J0131; J1644; U0003; U0005

== ENCOUNTER 2022-02-20 16:07 | Emergency (ER) | payer OTHER ==
[2022-02-20 16:22] VITALS: BP 121/84; PULSE 56; TEMP 97.8; BMI 29.0
[2022-02-20] MEDS ORDERED: predniSONE 5 MG/5 ML ORAL SOLN- UNIT-DOSE CUP PO ONE (17:41)
[2022-02-20] MEDS ORDERED: LIDOCAINE 5% TOPICAL PATCH TP ONE (17:42)
[2022-02-20] MEDS ORDERED: ACETAMINOPHEN 500 MG TABLET (FP) PO ONE (17:42)
[2022-02-20] MEDS ORDERED: predniSONE 10 MG TABLET (UD) ONE (17:49)
[2022-02-20] MEDS ORDERED: ACETAMINOPHEN 500 MG TABLET (FP) ONE (17:49)
[2022-02-20] MEDS ORDERED: LIDOCAINE 5% TOPICAL PATCH ONE (17:49)
[2022-02-20] MEDS ORDERED: LIDOCAINE PATCH REMOVAL MC SCH (22:00)
== END 2022-02-20 19:43 | disposition home or self-care (01) ==
LOC: JERFT 16:07
DX: M54.50 Low back pain, unspecified (principal)
CPT/HCPCS: 99283-25

== ENCOUNTER 2022-04-24 15:21 | Emergency (ER) | payer OTHER ==
[2022-04-24 15:30] VITALS: BP 133/90; PULSE 68; TEMP 98.1; BMI 29.0
[2022-04-24] MEDS ORDERED: KETOROLAC TROMETHAMINE 30 MG/1 ML VIAL IM ONE (16:36)
[2022-04-24] MEDS ORDERED: KETOROLAC TROMETHAMINE 30 MG/1 ML VIAL ONE (17:06)
== END 2022-04-24 17:05 | disposition home or self-care (01) ==
LOC: JER 15:21 → JERFT 15:21
PROC: 3E0233Z Introduction of Anti-inflammatory into Muscle, Percutaneous Approach (ICD-10-PCS; principal; 2022-04-24)
DX: M79.622 Pain in left upper arm (principal)
CPT/HCPCS: 71046-TC-FY; 73030-TC-LT-FY; 73060-TC-LT-FY; 73070-TC-LT-FY; 99285-25

== ENCOUNTER 2022-10-07 20:41 | Emergency (ER) | payer OTHER ==
[2022-10-07 20:51] VITALS: BMI 28.2
[2022-10-07] MEDS ORDERED: ACETAMINOPHEN 500 MG TABLET (FP) PO ONE (21:26)
[2022-10-07] MEDS ORDERED: ACETAMINOPHEN 325 MG TABLET (FP) ONE (21:31)
[2022-10-07] MEDS ORDERED: LIDOCAINE PATCH REMOVAL MC SCH (22:00)
[2022-10-07] MEDS ORDERED: LIDOCAINE HCL 5% TOP OINTMENT 50 GM TUBE TP ONE (22:04)
[2022-10-07] MEDS ORDERED: LIDOCAINE 5% TOPICAL PATCH ONE (22:10)
[2022-10-07] MEDS ORDERED: KETOROLAC TROMETHAMINE 15 MG/ML VIAL IM ONE (22:14)
[2022-10-07] MEDS ORDERED: LIDOCAINE 5% TOPICAL PATCH TP ONE (22:15)
[2022-10-07] MEDS ORDERED: KETOROLAC TROMETHAMINE 15 MG/ML VIAL ONE (22:15)
[2022-10-08 11:13] VITALS: BP 121/84; PULSE 69; RESP 18; TEMP 97.8
== END 2022-10-08 12:16 | disposition home or self-care (01) ==
LOC: JER 20:41
PROC: 3E0233Z Introduction of Anti-inflammatory into Muscle, Percutaneous Approach (ICD-10-PCS; principal; 2022-10-07)
DX: M25.571 Pain in right ankle and joints of right foot (principal)
CPT/HCPCS: 73610-TC-RT-FY; 73630-TC-RT-FY; 99284-25

== ENCOUNTER 2022-10-16 06:38 | Emergency (ER) | payer OTHER ==
[2022-10-16 06:45] VITALS: BP 126/87; PULSE 78; RESP 18; TEMP 98.2; BMI 28.4
[2022-10-16] MEDS ORDERED: ACETAMINOPHEN 500 MG TABLET (FP) PO ONE (07:15)
[2022-10-16] MEDS ORDERED: guaiFENesin 200 MG/10 ML 10 ML UNIT-DOSE CUPS PO ONE (07:28)
[2022-10-16] MEDS ORDERED: guaiFENesin/D-METHORPHAN HB 10 ML UNIT-DOSE CUPS ONE (07:30)
== END 2022-10-16 08:27 | disposition home or self-care (01) ==
LOC: JER 06:38
DX: J02.9 Acute pharyngitis, unspecified (principal)
CPT/HCPCS: 0241U-QW; 99283-25

== ENCOUNTER 2022-11-04 09:54 | Emergency (ER) | payer OTHER ==
[2022-11-04 09:59] VITALS: BP 137/88; PULSE 83; RESP 18; TEMP 97; BMI 28.4
[2022-11-04] MEDS ORDERED: ACETAMINOPHEN 500 MG TABLET (FP) PO ONE (11:02)
[2022-11-04] MEDS ORDERED: DEXAMETHASONE SOD PHOSPHATE 10 MG/1 ML VIAL PO ONE (11:03)
[2022-11-04] MEDS ORDERED: DEXAMETHASONE SOD PHOSPHATE 10 MG/1 ML VIAL ONE (11:29)
[2022-11-04] MEDS ORDERED: ACETAMINOPHEN 500 MG TABLET (FP) ONE (11:29)
== END 2022-11-04 11:48 | disposition home or self-care (01) ==
LOC: JER 09:54 → JERFT 09:54
DX: M19.071 Primary osteoarthritis, right ankle and foot (principal)
CPT/HCPCS: 73610-TC-RT-FY; 73630-TC-RT-FY; 99283-25; J1100

== ENCOUNTER 2024-01-31 14:22 | Emergency (ER) | payer OTHER ==
[2024-01-31 14:33] VITALS: BP 126/85; PULSE 57; RESP 19; TEMP 98.8; BMI 29.3
[2024-01-31 17:22] LABS: BASO % 0.6 % (0-2.0); EOS % 2.2 % (0-4.5); HEMATOCRIT 39.8 % (32.4-45.2); HEMOGLOBIN 13.1 GM/dL (10.7-15.3); LYMPH % 28.3 % (8-40); MCH 32.5 pg (25.7-33.7); MEAN CELL VOLUME 98.5 fl (80-96); MEAN PLT VOLUME 9.8 fl (7.5-11.1); MONO % 7.1 % (3.8-10.2); NEUT % 61.8 % (42.8-82.8); PLATELET COUNT 266 10^3/uL (134-434); RBC 4.04 M/mm3 (3.60-5.2); RDW 14.6 % (11.6-15.6); WHITE BLOOD COUNT 6.7 K/mm3 (4.0-10.0)
[2024-01-31 17:36] LABS: POTASSIUM 4.7 mmol/L (3.5-5.1)
[2024-01-31 17:38] LABS: ALBUMIN 3.7 g/dl (3.4-5.0); CALCIUM 10.7 mg/dL (8.5-10.1)
[2024-01-31 17:39] LABS: BLOOD UREA NITROGEN 22.4 mg/dL (7-18)
[2024-01-31 17:43] LABS: BILIRUBIN,TOTAL 0.4 mg/dL (0.2-1); TOT PROT 7.4 g/dl (6.4-8.2)
== END 2024-01-31 19:15 | disposition home or self-care (01) ==
LOC: JER 14:22
DX: N64.4 Mastodynia (principal); R06.02 Shortness of breath; Z20.822 Contact with and (suspected) exposure to COVID-19
CPT/HCPCS: 0241U-QW; 36415; 71046-TC-FY; 76642-TC-RT; 80053; 85025; 85379; 93005; 93010; 99285-25

== ENCOUNTER 2024-10-16 20:12 | Emergency (ER) | payer OTHER ==
[2024-10-16 20:25] VITALS: BP 152/106; PULSE 96; RESP 18; TEMP 98.8; BMI 30.7
[2024-10-16] MEDS ORDERED: morphine SULFATE 4 MG/ML VIAL ONE (20:53)
[2024-10-16] MEDS: morphine CARPU-JECT 2 MG/1 ML DISP.SYRIN IM ONE (20:59)
== END 2024-10-16 21:48 | disposition home or self-care (01) ==
LOC: JERFT 20:12
PROC: 3E013NZ Introduction of Analgesics, Hypnotics, Sedatives into Subcutaneous Tissue, Percutaneous Approach (ICD-10-PCS; principal; 2024-10-16)
DX: S60.222A Contusion of left hand, initial encounter (principal); Y04.1XXA Assault by human bite, initial encounter
CPT/HCPCS: 73130-TC-LT-FY; 99284-25